=== PATIENT | female | born 1995 | race Caucasian/White ===

== ENCOUNTER → 2023-11-02 15:43 | Outpatient (REF) | payer OTHER, SELFPAY | LOC: RAD 15:43 | PROVIDERS: ATTENDING PHYSICIAN Obstetrics & Gynecology | DX: O26.851 Spotting complicating pregnancy, first trimester (principal) | CPT/HCPCS: 76801 ==

== ENCOUNTER 2024-06-22 21:26 | Inpatient (IN) | payer OTHER, SELFPAY ==
[2024-06-22 21:43] VITALS: BP 122/82; BMI 30.7
[2024-06-22] MEDS: LR 1000 IV (22:00)
[2024-06-22 22:14] LABS: % Basophils 0.4 % (0-2); % Eosinophils 0.8 % (0-6); % Immature Granulocytes 0.5 % (0-0.5); % Lymphocytes 12.8 % (20.5-51.1); % Monocytes 5.7 % (1.7-9.3); % Neutrophils 79.8 % (42.2-75.2); Absolute Basophils 0.1 10^3/uL (0-0.2); Absolute Eosinophils 0.1 10^3/uL (0-0.7); Absolute Immature Granulocytes 0.1 10^3/uL (0-0.05); Absolute Lymphocytes 2.1 10^3/uL (1.2-3.4); Absolute Monocytes 0.9 10^3/uL (0.1-0.6); Absolute Neutrophils 13.2 10^3/uL (1.4-6.5); Hematocrit 33.3 % (37.0-47.0); Mean Corpuscular Hgb 31.7 pg (27.0-31.0); Mean Corpuscular Volume 87.9 fL (81.0-99.0); Mean Platelet Volume 9.7 fL (7.4-10.4); Nucleated Red Blood Cells % 0 %; Platelet Count 311 10^3/uL (130-400); Red Blood Cell Count 3.79 10^6/uL (4.20-5.40); Red Cell Dist. Width 12.1 % (11.5-14.5); White Blood Cell Count 16.5 10^3/uL (4.8-10.8)
[2024-06-22] MEDS: FENTANYL/BUPIVACAINE 100 EPIDURAL (23:36)
[2024-06-22] MEDS: SUBLIMAZE 100 MCG EPIDURAL (23:36)
[2024-06-23] MEDS: LR 1000 IV ×2 (00:56→08:17)
[2024-06-23] MEDS: FENTANYL/BUPIVACAINE 100 EPIDURAL (08:17)
[2024-06-23] MEDS: PITOCIN 30 UNITS/NSS 500 ML IV (10:44)
[2024-06-23] MEDS: MOTRIN 600 MG PO ×2 (13:45→20:07)
[2024-06-24] MEDS: MOTRIN 600 MG PO ×3 (03:13→19:44)
[2024-06-24] MEDS: SENOKOT-S 1 TABLET PO (03:13)
[2024-06-24 06:44] LABS: Hematocrit 29.1 % (37.0-47.0); Hemoglobin 10.5 g/dL (12.0-16.0)
[2024-06-24] MEDS: HYDROCORTISONE 2.5% OINTMENT 1 APPLIC TOPICAL (10:28)
[2024-06-24 16:26] LABS: Syphilis/T. pallidum Ab Reflex Negative (Negative)
[2024-06-24] MEDS: PRENATAL PLUS 1 TABLET PO (17:53)
[2024-06-25] MEDS: SENOKOT-S 1 TABLET PO (05:09)
[2024-06-25] MEDS: MOTRIN 600 MG PO (05:09)
== END 2024-06-25 11:30 | disposition home or self-care (01) | DRG 807 ==
LOC: LDRP 21:26
PROVIDERS: Obstetrics & Gynecology; ADMITTING PHYSICIAN Obstetrics & Gynecology; FAMILY PHYSICIAN Internal Medicine
PROC: 10E0XZZ Delivery of Products of Conception, External Approach (ICD-10-PCS; 2024-06-23)
PROC: 0UQMXZZ Repair Vulva, External Approach (ICD-10-PCS; 2024-06-23)
PROC: 0KQM0ZZ Repair Perineum Muscle, Open Approach (ICD-10-PCS; 2024-06-23)
DX: O48.0 Post-term pregnancy (principal); Z37.0 Single live birth; Z3A.40 40 weeks gestation of pregnancy; O69.81X0 Labor and delivery complicated by cord around neck, without compression, not applicable or unspecified; O70.1 Second degree perineal laceration during delivery
CPT/HCPCS: 36415; 85014; 85018; 85025; 86780; 86850; 86900; 86901

== ENCOUNTER 2024-07-08 18:33 | Inpatient (IN) | payer OTHER, SELFPAY ==
[2024-07-08 14:12] VITALS: BP 121/74
[2024-07-08 15:09] LABS: Hematocrit 35.6 % (37.0-47.0); Hemoglobin 12.4 g/dL (12.0-16.0); Mean Corp Hgb Conc. 34.8 g/dL (33.0-37.0); Mean Corpuscular Hgb 31.1 pg (27.0-31.0); Mean Corpuscular Volume 89.2 fL (81.0-99.0); Mean Platelet Volume 8.8 fL (7.4-10.4); Platelet Count 423 10^3/uL (130-400); Red Blood Cell Count 3.99 10^6/uL (4.20-5.40); White Blood Cell Count 24.2 10^3/uL (4.8-10.8)
[2024-07-08 15:30] LABS: ALT (SGPT) 14 U/L (0-35); AST (SGOT) 16 U/L (14-36); Albumin 3.3 g/dl (3.5-5.0); Alkaline Phosphatase 162 U/L (38-126); Blood Urea Nitrogen 14 mg/dl (7-17); Calcium 9.4 mg/dl (8.4-10.2); Carbon Dioxide 22 mmol/L (22-30); Chloride 104 mmol/L (98-107); Glucose 85 mg/dl (70-99); Potassium 4.6 mmol/L (3.5-5.1); Sodium 139 mmol/L (135-145); Total Bilirubin 0.2 mg/dl (0.2-1.3); Total Protein 6.4 g/dl (6.3-8.2); eGFR > 60.00
[2024-07-08 15:45] LABS: % Basophils 0.7 % (0-2); % Eosinophils 1.4 % (0-6); % Monocytes 5.2 % (1.7-9.3); % Neutrophils 85.7 % (42.2-75.2); Absolute Basophils 0.2 10^3/uL (0-0.2); Absolute Eosinophils 0.3 10^3/uL (0-0.7); Absolute Immature Granulocytes 0.2 10^3/uL (0-0.05); Absolute Lymphocytes 1.5 10^3/uL (1.2-3.4); Absolute Monocytes 1.3 10^3/uL (0.1-0.6); Absolute Neutrophils 20.7 10^3/uL (1.4-6.5); Nucleated Red Blood Cells % 0 %
--- NOTE | 2024-07-08 16:09 | ED.GENMED ---
History of Present Illness
General
Chief Complaint: Breast Problem
Source: patient
Exam Limitations: none
Time Seen by Provider: 07/08/24 14:53
Nursing documentation reviewed up to this point in time: agreed with
History of Present Illness
History of Present Illness:
28-year-old female hx Factor V Leiden, 2 weeks has significant left breast pain and swelling. She is being treated for mastitis with dicloxacillin for the past 48 hours without any relief. She has had daily fevers maximum 101.62 days
ago. She is pumping her breasts. She states pain gets to 8/10, her last Motrin was at 11 AM 400 mg and states her pain is 4/10 at this time.
Past History
Past History
ED Past Medical History: Other (Factor V Leiden)
Social History
Tobacco: Non-smoker
Personal:
Living: with family
Review of Systems
Review of Systems
Allergies reviewed?: Yes
All Other Systems: ROS reviewed and negative except as documented in HPI and ROS
Constitutional: Reports fever
Respiratory: Denies trouble breathing
Cardiac: Denies chest pain
ABD/GI: Denies abdominal pain, nausea or vomiting
Skin: Reports other (Swelling, redness, pain left breast)
Neurological: Reports no symptoms
Phy Exam
Physical Exam
Physical Exam:
GENERAL: No acute distress. A&Ox3.
CONSTITUTIONAL: Afebrile.
EYES: clear, conjunctivae normal
ENMT: moist mucus membranes
RESPIRATORY: Regular respirations, nonlabored, lungs clear.
CARDIOVASCULAR: Regular rate and rhythm, no murmurs, no rubs.
GI: Soft, nontender, normal BS
MUSCULOSKELETAL: Moves with ease. Well perfused.
SKIN: Warm, dry, pink. Left breast slightly more swollen than right, erythema upper breast with significant tenderness
PSYCH: Normal mood and affect. Well kept, interactive and appropriate
NEUROLOGIC: Awake, alert and oriented. No focal neurological deficits
Course
Orders/Labs/Results
Orders:
Orders
07/08/24 14:54
CMP [Comprehensive Metabolic Panel] Urgent
Complete Blood Count/With Diff Urgent
07/08/24 Dinner
Regular
At Your Request: Full Participation
Does patient need a safe tray?: No
07/08/24 15:22
US Breast Left Ltd WDC Urgent
Reason for Exam: CONCERN FOR ABSCESS TREATING FOR MASTITIS
07/08/24 16:15
Piperacillin/Tazo 3.375 Gram [Zosyn] 3.375 gram in 50 ml IV NOW
07/08/24 16:20
Breast Surgery Consult Urgent
Consulting Provider: Jasmyn Jarvis
Was physician already notified: Yes
Reason for Consult: L breast abscess, 2 weeks post
07/08/24 16:23
Consult Interventional Radiology [IRAD CONSULT] Urgent
Consulting Provider: Gunnar Vergara
Was physician already notified: Yes
Reason for Consult/Procedure: L breast abscess
Acknowledgement that appropriate orders are entered: Yes
07/08/24 16:37
Fluid Culture with Gram Stain Routine
JHONATHAN Source: Fluid
Specimen Description:
Comment: left breast abscess
07/08/24 17:35
Lactate Level [Lactic Acid] Urgent
07/08/24 17:37
Acetaminophen [Tylenol] 650 mg .ROUTE .STK-MED ONE
07/08/24 17:39
Acetaminophen [Tylenol] 650 mg PO NOW STA
07/08/24 17:40
INFECTIOUS DISEASE CONSULT Routine
Consulting Provider: Marialuisa Mcdonald
Was physician already notified: Yes
Reason for consult: left breast abcess/mastitis
Vancomycin [Vancocin] 1,500 mg 0.9% Sodium Chloride 500 ml [Nss] 500 ml IV NOW
07/08/24 17:41
Admit/Transfer Patient As Directed
Co-Sign Provider:
Level of Care: Inpatient admission
Assign to:: LDRP
Physician / Group: rehan rangel
Diagnosis: sepsis left breast abcess /mastitis
Reason for Hospitalization: sepsis left breast abscess /mastitis
Expected length of stay greater than two midnights?: Yes
ELOS- Estimated Length of Stay in days: 3
I certify the patient meets the requirements for IP care: Yes
Code Status As Directed
Resuscitation Status: Full Code
07/08/24 17:46
PRN Pain Medication Management As Directed
May give lesser potent ordered pain med per pt: Yes
preference::
Protocol:: Medication orders for pain may be administered in a
manner that supports deferring to patient preference
when the pt is:
- Requesting an ordered lesser potent pain medication.
Least to most potent pain medications are defined
as: acetaminophen < NSAID < tramadol < opioids
(morphine, oxycodone, hydromorphone).
- Requesting a lesser dose of the same medication IF
ORDERED.
- Requesting a less intrusive route of administration
if both routes are prescribed by the provider (PO <
IV).
07/08/24 17:53
Breast Surgery Consult Routine
Consulting Provider: Jasmyn Jarvis
Was physician already notified: Yes
Reason for Consult: left breast abscess 2 weeks post
07/08/24 19:49
0.9% Sodium Chloride 1000 ml [Nss] 1,000 ml IV 100 mls/hr
Acetaminophen [Tylenol] 650 mg PO Q4HPRN PRN
Bisacodyl [Dulcolax] 10 mg RECTAL [id number] PRN
Docusate W/Senna [Senokot-S] 1 tablet PO BIDPRN PRN
Ibuprofen [Motrin] 400 mg PO Q6HPRN PRN
Polyethylene Glycol Powder [Miralax] 17 grams PO DAILYPRN PRN
07/08/24 19:49
CONSULT Routine
Activity As Directed
Activity Level: As Tolerated
Pneumatic Compression Sleeves As Directed
Type: Knee high
Vital Signs As Directed
Frequency: Per unit guidelines
DX Deep Vein Thrombosis Video Routine
07/08/24 21:30
Blood Culture Routine
JHONATHAN Source: Blood/Venous
Specimen Description:
07/08/24 22:00
Piperacillin/Tazo 3.375 Gram [Zosyn] 3.375 gram in 50 ml IV Q6H
07/09/24 06:00
Complete Blood Count/With Diff IN AM
Comprehensive Metabolic Panel IN AM
07/10/24 06:00
Complete Blood Count/With Diff IN AM
Comprehensive Metabolic Panel IN AM
07/11/24 06:00
Complete Blood Count/With Diff IN AM
Comprehensive Metabolic Panel IN AM
Abnormal Lab Results
07/08/24
14:54
WBC 24.2 H 10^3/uL
(4.8-10.8)
RBC 3.99 L 10^6/uL
(4.20-5.40)
Hct 35.6 L %
(37.0-47.0)
MCH 31.1 H pg
(27.0-31.0)
Plt Count 423 H 10^3/uL
(130-400)
Abs Immat Gran (auto) 0.2 H 10^3/uL
(0-0.05)
Absolute Neuts (auto) 20.7 H 10^3/uL
(1.4-6.5)
Absolute Monos (auto) 1.3 H 10^3/uL
(0.1-0.6)
Immature Gran % 1.0 H %
(0-0.5)
Neutrophils % 85.7 H %
(42.2-75.2)
Lymphocytes % 6.0 L %
(20.5-51.1)
Alkaline Phosphatase 162 H U/L
(38-126)
Albumin 3.3 L g/dl
(3.5-5.0)
07/08/24 14:54
07/08/24 14:54
Vital Signs
Initial and Last Documented VS:
Initial Vital Signs
Temp Pulse Resp BP Pulse Ox
98.7 F 97 16 121/74 96
07/08/24 14:12 07/08/24 14:12 07/08/24 14:12 07/08/24 14:12 07/08/24 14:12
Last Documented Vital Signs
Temp Pulse Resp BP Pulse Ox
99.3 F 97 16 121/74 96
07/08/24 17:19 07/08/24 14:12 07/08/24 14:12 07/08/24 14:12 07/08/24 14:12
MDM/Problems Addressed
MDM/Problems Addressed:
28-year-old female hx Factor V Leiden, 2 weeks has significant left breast pain and swelling. She is being treated for mastitis with dicloxacillin for the past 48 hours without any relief. She has had daily fevers maximum 101.62 days
ago. She is pumping her breasts. She states pain gets to 8/10, her last Motrin was at 11 AM 400 mg and states her pain is 4/10 at this time.
Afebrile, NAD
L breast with redness upper breast, swelling and very tender.
CBC: WBC 24.2
CMP normal
4:15 p.m.
Ultrasound left breast radiology report read: IMPRESSION: There is a large collection of fluid which given symptoms is likely abscess. There is abnormal adenopathy, likely reactive
Plan: Admit to Dr. Rangel
IV antibiotics
Consult in for Dr. Jarvis who requests IR drain abscess.
IR consult in.
*Critical Care Note
Total Time (30-74mins, 75-104mins- exclusive of procedures): Not Applicable
ED Attending Note
-
Portions of this chart may have been created with voice recognition software.� Occasional wrong word or��sound alike� substitutions may have occurred due to the inherent limitations of voice recognition software.
Discharge Plan
Departure
Patient Disposition: Admit
Date of Disposition: 07/08/24
Time of Disposition: 16:11
Admit to: Med/Surg
Presentation/result/management discussed w/ accepting MD/DO: Dr. Rangel
Condition: Fair
Discharge Problem:
Abscess of left breast
Interventions
Interventions:
*Risk Screen - Suicide Last Done: 07/08/24 14:12
*General Assessment Last Done: 07/08/24 14:12
*Neglect/Abuse Screening Last Done: 07/08/24 14:12
*ED COVID-19 Vaccine History Last Done: 07/08/24 14:56
*Nursing Disposition Last Done: 07/08/24 19:53
ED-Skin Assessment Last Done: 07/08/24 14:56
Discharge Date and Time
Discharge Date/Time: 07/08/24 19:53
[2024-07-08] MEDS: ZOSYN 50 IV ×2 (16:27→23:06)
--- NOTE | 2024-07-08 16:34 | HPS.HSE ---
Family Physician
<CASE Viveros - Last Filed: 07/08/24 17:54>
-
Family Physician: Pablito Ortega
Chief Complaint
<CASE Viveros - Last Filed: 07/08/24 17:54>
-
Left breast mastitis, swelling, recent fevers
History of Present Illness
28-year-old female 2 weeks with left breast pain and swelling due to mastitis. She reports having a small round marble red area to the top of her left breast 4 to 5 weeks ago before having her child. She reports 1 week ago the swelling
started expanding across the top of her breast to the left lateral side of it associated with 4 days of fevers 100.2F-101.6F through scheduled Tylenol and Motrin. She reports no fever today. She reports speaking with a application consultant who
advised her to use cold compresses to the area and continue to pump as normal. On Sunday 2 days ago she spoke with the on-call SURFACE SUPERVISOR doctor who placed her on Dicloxacillin which she took over the past 48 hours without any relief She reports she has
been pumping her breasts with this current infection. She has been taking Motrin for pain with last dose at 11 AM. She spoke today with on-call SURFACE SUPERVISOR who advised her to come to the hospital with possible admission to their service. In the ER her
left breast ultrasound showed a large collection of fluid which is likely an abscess. The case was discussed with Dr. Aranda who recommended IR to drain abscess patient to bring pump and and a consult.
She has history of factor V Leiden heterozygous type inherited only 1 genetic mutation type, 2 para 1 AB 1(miscarriage)
<Alivia Rangel DO - Last Filed: 07/08/24 19:42>
History of Present Illness
28-year-old female 2 weeks with left breast pain and swelling due to mastitis. She reports having a small round marble red area to the top of her left breast 4 to 5 weeks ago before having her child. She reports 1 week ago the swelling
started expanding across the top of her breast to the left lateral side of it associated with 4 days of fevers 100.2F-101.6F through scheduled Tylenol and Motrin. She reports no fever today. She reports speaking with a application consultant who
advised her to use cold compresses to the area and continue to pump as normal. On Sunday 2 days ago she spoke with the on-call SURFACE SUPERVISOR doctor who placed her on Dicloxacillin which she took over the past 48 hours without any relief She reports she has
been pumping her breasts with this current infection. She has been taking Motrin for pain with last dose at 11 AM. She spoke today with on-call SURFACE SUPERVISOR who advised her to come to the hospital with possible admission to their service. In the ER her
left breast ultrasound showed a large collection of fluid which is likely an abscess. The case was discussed with Dr. Jarvis who recommended IR to drain abscess patient to bring pump and and a consult.
She has history of factor V Leiden heterozygous type inherited only 1 genetic mutation type, 2 para 1 AB 1(miscarriage)
Medical History
<CASE Viveros - Last Filed: 07/08/24 17:54>
Past Medical History
Past Medical History: Reports Other
Additional Past Medical History:
factor V Leiden heterozygous type inherited only 1 genetic mutation type.
Past Surgical History: Reports None
Social History
Tobacco: Non-smoker
Alcohol: None
Drug: None
Personal:
Living: With Family ()
Employment: Employed
Family History
Family History: Other (Mother heterozygous type factor V Leiden, maternal aunt homozygous type factor V with history of multiple DVTs, maternal grandmother lung CA)
Allergies / Home Medications
Allergies reflects when Allergies were last updated in [facility].
Home Medications with original date entered in [facility]
Allergy/Medication List:
Allergies
Allergy/AdvReac Type Severity Reaction Status Date / Time
No Known Allergies Allergy Verified 07/08/24 14:12
Home Medications
acetaminophen 500 mg tablet 500 mg PO Q6HPRN PRN mild pain 07/08/24
dicloxacillin 500 mg capsule 500 mg PO Q6H 07/08/24
ferrous sulfate 325 mg (65 mg iron) tablet (FeroSul) 325 mg PO HS 07/08/24
ibuprofen 200 mg tablet 400 - 600 mg PO Q6HPRN PRN moderate pain/cramps 07/08/24
vit no.133-ferrous fumarate 28 mg-folic acid 800 mcg tablet () 1 tab PO HS 07/08/24
sennosides 8.6 mg-docusate sodium 50 mg tablet 1 tab PO HS 07/08/24
Review of Systems
<CASE Viveros - Last Filed: 07/08/24 17:54>
-
History Source: Patient and Family ( at bedside)
A 12 point ROS was completed and negative except as noted: Yes
Constitutional: Denies Fever, Fatigue or Chills
EENT: Denies Tearing or Runny Nose
Respiratory: Denies Cough or Trouble Breathing
Cardiac: Denies Chest Pain, Diaphoresis, Palpitations or Syncope
Abdomen/GI: Denies Abdominal Pain, Nausea, Vomiting, Diarrhea, Constipated, Bloody Stools or Black Stools
: Denies Dysuria, Frequency, Flank Pain, Incontinence, Difficulty Voiding, Urgency or Bleeding
Musculoskeletal: Denies Joint Pain or Edema
Skin: Reports Other (Left breast swollen, tender, erythema to entire top of breast and lateral left side left breast engorged with breastmilk)
Neurological: Denies Dizzy or Headache
Endocrine: Reports No Symptoms
Hematologic/Lymphatic: Reports No Symptoms
Psych: Reports Calm
Physical Exam
<CASE Viveros - Last Filed: 07/08/24 17:54>
Vital Signs
Vital Signs
Temp Pulse Resp BP Pulse Ox
98.7 F 97 16 121/74 96
07/08/24 14:12 07/08/24 14:12 07/08/24 14:12 07/08/24 14:12 07/08/24 14:12
Physical Exam
General: Comfortable, Conversant and Pain; No Fever or Chills
HEENT: NormoCephalic, Anicteric, Moist mucous membranes, PERRLA, [place] Conjunctivae and No Ptosis
Respiratory: Clear; No Wheezes, Rales or Rhonchi
Cardiac: S1/S2 and Regular Rhythm; No Murmur, Rub, Gallop or Peripheral Edema
Breast: Deferred by me and Other (Left breast swollen, tender, erythema to entire top of breast and lateral left side left breast engorged with breastmilk)
GI: Soft, Non Tender, Non Distended, Normal Bowel Sounds and No Hepatosplenomegaly
Rectal: Deferred by Provider
Genito-urinary: Deferred by me
Musculoskeletal: No Clubbing, No Cyanosis and No Edema
Skin: Warm, Dry and Other (Left breast swollen, tender, erythema to entire top of breast and lateral left side left breast engorged with breastmilk); No Rash
Neuro: AO x 3 and No Motor Deficits; No Cranial Nerves Intact, No Sensory Deficits, Slurred Speech, Facial Droop, Tremors or Sedated
Psych: Calm
Laboratory Results
<CASE Viveros - Last Filed: 07/08/24 17:54>
-
07/08/24 14:54
07/08/24 14:54
Laboratory Results
Total Bilirubin 0.2 mg/dl (0.2-1.3) 07/08/24 14:54
AST 16 U/L (14-36) 07/08/24 14:54
ALT 14 U/L (0-35) 07/08/24 14:54
Alkaline Phosphatase 162 U/L (38-126) H 07/08/24 14:54
Impression/Plan
<CASE Viveros - Last Filed: 07/08/24 17:54>
-
Impression/plan:
Admit to �Dr. Iaprachi service
#Sepsis secondary to LEFT BREAST ABSCESS / MASTITIS 2 weeks
4 days fever 100.2F- 101.6F sunday to sunday T max 101.6F
left breast swelling 2 days of Dicloxacillin from SURFACE SUPERVISOR
-WBC 24.2 with left shift, afebrile 98.7, HR 97, BP 121/74
- possible Consult Dr. Isidro
-Consult IR for breast abscess drainage
-Consult Infectious disease recommends IV vancomycin IV Zosyn
-IV NSS 100 cc/h
-Have patient continue to use Breast pump
- consult
-Tylenol, Motrin as needed pain/fever
-Check blood culture x 1
-Follow CBC, CMP
#Hx factor V Leiden(heterozygous type)
-Only carries 1 gene mutation
DVT prophylaxis
SCDs
Full code
<Alivia Rangel DO - Last Filed: 07/08/24 19:42>
-
Impression/plan:
Admit to �DrGuillermo Rangel service
#Sepsis secondary to LEFT BREAST ABSCESS / MASTITIS 2 weeks
4 days fever 100.2F- 101.6F sunday to sunday T max 101.6F
left breast swelling 2 days of Dicloxacillin from SURFACE SUPERVISOR
-WBC 24.2 with left shift, afebrile 98.7, HR 97, BP 121/74
- possible Consult Dr. Jarvis
-Consult IR for breast abscess drainage
-Consult Infectious disease recommends IV vancomycin IV Zosyn
-IV NSS 100 cc/h
-Have patient continue to use Breast pump
- consult
-Tylenol, Motrin as needed pain/fever
-Check blood culture x 1
-Follow CBC, CMP
#Hx factor V Leiden(heterozygous type)
-Only carries 1 gene mutation
2 wks s/p - did not require PP anticoagulation after delivery since no csec
DVT prophylaxis
SCDs
Full code
[2024-07-08] MEDS: TYLENOL 650 MG PO ×2 (17:39→23:18)
[2024-07-08 17:58] LABS: Lactic Acid 0.9 mmol/L (0.7-2.0)
--- NOTE | 2024-07-08 18:52 | EDRN ---
Report tubed by previous shift; room assigned but staff not ready per flow coordinating RN.
--- NOTE | 2024-07-08 19:16 | W.PN.UPDATE ---
Update Note
Progress Note Update
28 yo female presented to ED at direction of Dr. Garcia after pt called reporting left breast mastitis symptoms worsening despite abx.
I saw pt in ER earlier tonight. This is late entry due to being involved in direct pt care.
Pt reported onset of some lumpiness in left breast prior to delivery which was felt to be related to expected breast glands changes towards end of . Approx 1 wk ago started feeling some soreness in left breast. Within a few days started
with fever and chills. Was started on abx over this past weekend Dicloxacillin with no improvement in last 2 days. Symptoms worse with continued fever despite motrin/tylenol and increased pain , redness and tenderness. Temp to 101-102 at home. Went
to ER today. Imaging demonstrated large fluid collection felt to likely be an abscess given symptoms and course of sx.
ROS: fever, chills, left breast pain, redness, tenderness, swelling. Diminished milk flow from left breast. Body aches and general malaise. No N/V/D/C, no abd pain. Bleeding slightly picked up today. Not heavy. No dizziness.
Brief Exam:
Pleasant female, appears with some malaise. Nontoxic appearance but can tell not feeling well.
Left breast is erythematous diffusely and tender, firm with fluctuation superiorly. Breast is engorged. Mass difficult to palpate due to swelling and induration. Findings more notable superior half and left side of left breast.
Right breast normal in appearance slightly engorged with milk. No erythema or mass
abdomen: soft NT ND
Fundus firm NT
Ext: no significant edema
A/P :1. Left breast mastitis with probable abscess-> plan zosyn and vancomycin (for mrsa coverage). Ok to continue to breastfeed. Will obtain consult tomorrow. ID consult for input on abx. PT to speak to her manager culture regarding
possible probiotic drops for baby if indicated.
Admit for IV abx, plan is for drainage tomorrow by IRad. Reviewed plan with pt and . Aware will have drain placed at time of d/c home. Aware to expect 2-3 days hospitalization until culture results return and showing clinical improvement.
Spoke with Dr. Jarvis who is also consulted since pt will need to follow up with her postdischarge.
Factor V Leiden heterozygous carrier- DVT proph
2 wks s/p - otherwise expected recovery outside of mastitis and abscess.
Reviewed MOTOR VEHICLES INSPECTOR H&P and Assessment and plan and agree.
Time spent face to face consult, reviewing records, reports, discussion with Dr. Jarvis as well as MOTOR VEHICLES INSPECTOR and documentation on day of visit was over 45 min
[2024-07-08] MEDS: VANCOCIN 530 MG IV (19:35)
--- NOTE | 2024-07-08 20:08 | PHA.VAN.IN ---
Assessment
- Assessment
Renal Function: Appears similar to baseline
Concomitant Antimicrobials: ZOSYN
- Previous Dosing Experience
Previous Regimen: NONE
AUC Dosing Plan
- Dosing Variables
Dosing Weight (kg): 69.2
Dosing CrCl (ml/min): 125
Vd coefficient (L/kg): 0.7
- Empiric Dosing
Initial / Loading Dose: 1500MG
Maintenance Regimen: 750MG IV Q8H
Estimated AUC (mcg*h/mL): 453
Estimated Peak (mcg*h/mL): 26.7
Estimated Trough (mcg/ml): 12.5
Estimated Half Life (H): 6.4
Pharmacokinetics Vancomycin I
- -
Patient Age: 28
Patient Sex: Female
Vancomycin Day #: 1
Indication: Skin And Soft Tissue (BREAST MASTITIS)
Requesting Provider: BREANNA
Height / Weight:
Height 5 ft 3 in
Actual Weight 69.2 kg
Pertinent Past Medical History: FAILED OUTPT [place]
- Vital Signs / Lab Results
Temp Pulse Resp BP Pulse Ox
99.3 F 97 16 121/74 96
07/08/24 17:19 07/08/24 14:12 07/08/24 14:12 07/08/24 14:12 07/08/24 14:12
Lab Results - Hematology
07/08/24
14:54
WBC 24.2 H
Lab Results - Chemistry
07/08/24
14:54
BUN 14
Creatinine 0.6
Albumin 3.3 L
07/08/24
17:35
Lactic Acid 0.9
[2024-07-08] MEDS: MOTRIN 400 MG PO (20:35)
[2024-07-08] MEDS: NSS 1000 IV (20:50)
[2024-07-08 20:51] LABS: Urine Albumin Negative (Neg - Trace); Urine Bilirubin Negative (Negative); Urine Character Clear (Clear); Urine Color Yellow; Urine Glucose Negative (Negative); Urine Ketone 1+ (Negative); Urine Leukocyte 1+ (Negative); Urine Nitrite Negative (Negative); Urine Occult Blood 4+ (Negative); Urine Urobilinogen Negative (Neg - 1+); Urine pH 6.5 (5.0-9.0)
[2024-07-08 21:00] LABS: Urine Bacteria Few (Negative); Urine White Cell 16-20 /HPF (0-5)
--- NOTE | 2024-07-08 21:31 | CON.GS ---
Consultation
-
Date/Time Consultation Requested: 07/08/24 1620H
Date/Time Consultation Performed: 07/08/24 1750H
Requesting Provider: Claire
Performing Provider: Simona
Reason for Consultation: Breast abscess
Medical History
-
Chief Complaint: Painful red swollen left breast
History of Present Illness:
28 Y/O female who delivered a term baby boy 2 weeks ago and who has been exclusively pumping breast milk presents with 7 day history of left breast lumps, pain and worsening fever. US today shows complex collection in the left breast consistent
with an abscess. The patient was febrile to 101.6 F while taking Tylenol and Advil around the clock.
Past Medical History
Past Medical History: Reviewed & Noncontributory
Past Surgical History: None
Social History
Tobacco: Non-Smoker
Alcohol: None
Personal:
Living: With Family
Family History
Family History: Reviewed & Not Pertinent
Allergies / Home Medications
Allergy/AdvReac Type Severity Reaction Status Date / Time
No Known Allergies Allergy Verified 07/08/24 14:12
�Medication �Instructions �Recorded �Confirmed �Type
acetaminophen 500 mg tablet 500 mg PO Q6HPRN PRN mild pain 07/08/24 07/08/24 History
dicloxacillin 500 mg capsule 500 mg PO Q6H 07/08/24 07/08/24 History
ferrous sulfate 325 mg (65 mg 325 mg PO HS 07/08/24 07/08/24 History
iron) tablet (FeroSul)
ibuprofen 200 mg tablet 400 - 600 mg PO Q6HPRN PRN 07/08/24 07/08/24 History
moderate pain/cramps
vit no.133-ferrous 1 tab PO HS 07/08/24 07/08/24 History
fumarate 28 mg-folic acid 800 mcg
tablet ()
sennosides 8.6 mg-docusate sodium 1 tab PO HS 07/08/24 07/08/24 History
50 mg tablet
Review of Systems
-
History Source: Patient
All other systems: Negative unless noted
A 10 point review of systems was completed, and was negative except as per HPI.
Physical Exam
Vital Signs
Temp Pulse Resp BP Pulse Ox
99.3 F 97 16 121/74 96
07/08/24 17:19 07/08/24 14:12 07/08/24 14:12 07/08/24 14:12 07/08/24 14:12
07/07/24 07/08/24 07/09/24
06:59 06:59 06:59
Actual Weight 69.2 kg
Lab Results
07/08/24 14:54
07/08/24 14:54
WBC 24.2 10^3/uL (4.8-10.8) H 07/08/24 14:54
Hgb 12.4 g/dL (12.0-16.0) 07/08/24 14:54
Hct 35.6 % (37.0-47.0) L 07/08/24 14:54
Plt Count 423 10^3/uL (130-400) H 07/08/24 14:54
Abs Immat Gran (auto) 0.2 10^3/uL (0-0.05) H 07/08/24 14:54
Neutrophils % 85.7 % (42.2-75.2) H 07/08/24 14:54
Physical Exam
General: Well Developed, Well Nourished and No Apparent Distress
HEENT: Normocephalic and Anicteric
Respiratory: Clear
Breast: Other (significant swelling and erythema left breast consistent with abscess)
Musculoskeletal: No Clubbing and No Edema
Skin: Warm and Dry
Neuro: Awake and Alert
Hematologic/Lymphatic: No Lymphadenopathy
Psych: Calm
Data Reviewed
-
Radiology: Image Personally Visualized and interpreted, Report Reviewed by me and Discussed with Physician
Ultrasound: Image Personally Visualized and interpreted, Report Reviewed by me, Discussed with Physician, Discussed with Patient and Discussed with Family
Labs: Labs Reviewed by me
Critical Care Time (in minutes): 30
Total Time Spent with Patient (in minutes): 20
Assessment / Plan
-
Left breast abscess in nursing mother. Broaden antibiotics, for IR drainage under sedation. Pt can continue to nurse, will room in with baby. Antibiotics per ID. I will follow.
[2024-07-09] MEDS: TYLENOL 650 MG PO ×3 (03:42→23:42)
[2024-07-09] MEDS: ZOSYN 50 IV ×3 (03:43→17:30)
[2024-07-09] MEDS: MOTRIN 400 MG PO ×3 (03:43→19:55)
[2024-07-09 05:41] LABS: % Basophils 0.7 % (0-2); % Immature Granulocytes 0.9 % (0-0.5); % Lymphocytes 5.9 % (20.5-51.1); % Monocytes 5.1 % (1.7-9.3); % Neutrophils 86.4 % (42.2-75.2); Absolute Basophils 0.2 10^3/uL (0-0.2); Absolute Eosinophils 0.3 10^3/uL (0-0.7); Absolute Immature Granulocytes 0.2 10^3/uL (0-0.05); Absolute Lymphocytes 1.5 10^3/uL (1.2-3.4); Absolute Monocytes 1.3 10^3/uL (0.1-0.6); Absolute Neutrophils 21.4 10^3/uL (1.4-6.5); Hematocrit 33.2 % (37.0-47.0); Hemoglobin 11.6 g/dL (12.0-16.0); Mean Corp Hgb Conc. 34.9 g/dL (33.0-37.0); Mean Corpuscular Hgb 30.9 pg (27.0-31.0); Mean Corpuscular Volume 88.3 fL (81.0-99.0); Mean Platelet Volume 8.7 fL (7.4-10.4); Nucleated Red Blood Cells % 0 %; Platelet Count 407 10^3/uL (130-400); Red Blood Cell Count 3.76 10^6/uL (4.20-5.40); Red Cell Dist. Width 12.1 % (11.5-14.5); White Blood Cell Count 24.7 10^3/uL (4.8-10.8)
[2024-07-09 05:55] LABS: ALT (SGPT) 14 U/L (0-35); AST (SGOT) 12 U/L (14-36); Albumin 2.8 g/dl (3.5-5.0); Alkaline Phosphatase 133 U/L (38-126); Blood Urea Nitrogen 10 mg/dl (7-17); Calcium 8.6 mg/dl (8.4-10.2); Carbon Dioxide 19 mmol/L (22-30); Chloride 106 mmol/L (98-107); Estimated Creatinine Clearance > 125 ml/min; Glucose 129 mg/dl (70-99); Potassium 4.2 mmol/L (3.5-5.1); Sodium 140 mmol/L (135-145); Total Bilirubin 0.2 mg/dl (0.2-1.3); Total Protein 5.6 g/dl (6.3-8.2); eGFR > 60.00
[2024-07-09] MEDS: VANCOCIN 150 IV ×2 (06:02→16:22)
[2024-07-09] MEDS: NSS 1000 IV ×2 (06:03→16:05)
--- NOTE | 2024-07-09 07:08 | PTCARENOTE ---
Received report from Letitia Rodriguez RN
--- NOTE | 2024-07-09 08:17 | PHA.VAN.FU ---
Vancomycin Assessment / Plan
- Assessment
Renal Function: Stable
WBC's are: Stable
In the past 24 hrs, patient has been: Afebrile
Concomitant Antimicrobials: piperacillin/tazobactam
- Dosing Plan
Continue: Vanc 750mg Q8H
- Monitoring Plan
No level(s) ordered at this time: consider levels in next few days
- Follow Up
Pharmacy will continue to follow.
Vancomycin Follow UP
- -
Patient Age: 28
Patient Sex: Female
Vancomycin Day #: 2
Indication: Skin And Soft Tissue
Requesting Provider: Erica Graff
Pertinent Antimicrobial Allergies:
NKDA
Height / Weight:
Height 5 ft 3 in
Actual Weight 69.2 kg
Pertinent Past Medical History: 2 weeks
- Vital Signs / Lab Results
Temp Pulse Resp BP Pulse Ox
99.3 F 97 16 121/74 96
07/08/24 17:19 07/08/24 14:12 07/08/24 14:12 07/08/24 14:12 07/08/24 14:12
Lab Results - Hematology
07/08/24 07/09/24
14:54 05:27
WBC 24.2 H 24.7 H
Lab Results - Chemistry
07/08/24 07/09/24
14:54 05:27
BUN 14 10
Creatinine 0.6 0.6
Estimated Creat Clear > 125
Albumin 3.3 L 2.8 L
07/08/24
17:35
Lactic Acid 0.9
Lab Results - Urine
07/08/24
20:44
Urine Nitrite (Reflex) Negative
Leukocyte Esterase Rfl 1+ A
Ur Squamous Epith Cells 3-5
--- NOTE | 2024-07-09 09:58 | CON.ID ---
Consultation
-
Date/Time Consultation Requested: 07/08/2024 1740
Date/Time Consultation Performed: 07/09/2024 0909
Requesting Provider: Marysol Graff
Performing Provider: Dr. Dsouza
Reason for Consultation: Left breast mastitis
Chief Complaint / Past History
History of Present Illness
Mary Zimmer is a 28-year-old female without a significant past medical history being evaluated for left breast mastitis. History is obtained from chart review, along with patient interview.
The patient reports that approximately 38 weeks of her she began to feel 2 small lumps in the left superior breast area. At this point in time they were not tender, and they were believed to be secondary to her milk coming in. She
delivered a healthy baby boy on 06/22/2024. Following the , she noted an increase in size of the lumps in the left breast, and following discharge to home the lumps increased in size and became more painful. She saw her social economist
approximately 1 week ago, but the lumps were felt to be secondary to her milk and she was advised to remain on Motrin and Tylenol. 4 days ago she developed a fever to 101.6. The following day she called her social economist and was prescribed
dicloxacillin. Despite 48 hours of antibiotics she continued to feel worse, with increasing tenderness and painful areas of the breast and she came to the emergency room for further evaluation. Here, an ultrasound was performed which revealed a
rather large collection, with possible other collections in the left breast. She is tentatively to undergo IR aspiration of the areas later today.
She has no prior history of similar episodes. She is currently breast-feeding. She denies any change in appearance of the milk, although notes decreased production of milk from the left breast. No noted expressed blood.
Past History
Past Medical History: Other (Factor V Leiden deficiency)
Past Surgical History: None
Allergy History:
No Known Allergies Allergy (Verified 07/08/24 14:12)
Medications Reviewed: Yes
Current Antibiotics:
Vancomycin (dosed per pharmacy)
Zosyn 3.375 g IV every 6 hours
Social History
Tobacco: Non-Smoker
Alcohol: None
Drug: None
Personal:
Living: With Family
Employment: Employed
Family History
Family History: Not Pertinent
Review of Systems
Vital Signs
Temp Pulse Resp BP Pulse Ox
99.3 F 97 16 121/74 96
07/08/24 17:19 07/08/24 14:12 07/08/24 14:12 07/08/24 14:12 07/08/24 14:12
Physical Exam
Physical Exam
Constitutional: No Acute Distress, Comfortable and Non-toxic
Eyes: No Conjunctival Hemorrhage and Sclera Anicteric
Oral: No Thrush and No Ulcers
Cardiovascular: Regular Rate and S1/S2; Negative S3/S4
Pulmonary: Clear; Negative Wheezes, Rales or Rhonchi
Gastrointestinal: Soft, Non Tender, Distended, No Rebound and No Guarding
Genito-Urinary: Negative Herman
Extremities: Negative Edema, Cyanosis or Erythema
Skin: Warm and Dry
Neurological: Awake and Alert
Psychological: Calm
Left breast noted to have areas of erythema in the superior quadrants. Marked tenderness is noted. No fluctuant areas appreciated, but breast feels indurated.
Lab / Diagnostic Study Results
07/09/24 05:27
07/09/24 05:27
Abs Immat Gran (auto) 0.2 10^3/uL (0-0.05) H 07/09/24 05:27
Absolute Neuts (auto) 21.4 10^3/uL (1.4-6.5) H 07/09/24 05:27
Absolute Lymphs (auto) 1.5 10^3/uL (1.2-3.4) 07/09/24 05:27
Absolute Monos (auto) 1.3 10^3/uL (0.1-0.6) H 07/09/24 05:27
Absolute Basos (auto) 0.2 10^3/uL (0-0.2) 07/09/24 05:27
Immature Gran % 0.9 % (0-0.5) H 07/09/24 05:27
Neutrophils % 86.4 % (42.2-75.2) H 07/09/24 05:27
Lymphocytes % 5.9 % (20.5-51.1) L 07/09/24 05:27
Monocytes % 5.1 % (1.7-9.3) 07/09/24 05:27
Eosinophils % 1.0 % (0-6) 07/09/24 05:27
Basophils % 0.7 % (0-2) 07/09/24 05:27
Lactic Acid 0.9 mmol/L (0.7-2.0) 07/08/24 17:35
Ur Squamous Epith Cells 3-5 /LPF (Few) 07/08/24 20:44
Microbiology Results
Micro:
07/08/24 22:19 Blood Culture - Pending
Blood/Venous
07/08/24 21:30 Blood Culture - Pending
Blood/Venous
07/08/24 20:44 Urine Culture - Pending
Urine
Imaging:
07/08/2024 Ultrasound left breast: The left breast demonstrates a large collection of complex fluid between the 11 and 1:00 positions with additional smaller pockets throughout the breast. Fluid collections appear to interconnect. Lymph nodes are
enlarged, with the largest cortex measuring 7.9 mm. Please see full dictation for additional detail.
Assessment / Plan
Left breast mastitis with abscess
Leukocytosis
Fever
day #17
Recommendations:
Continue with empiric vancomycin and Zosyn. Follow vancomycin levels closely.
Await IR aspiration of the fluid collection. Please send for culture.
Monitor white count and temperature curve following source control.
Will await cultures to guide further antimicrobial selection and potential de-escalation.
Patient advised that she may need a course of IV antibiotics following discharge.
Further recommendations as additional data is returned.
[2024-07-09 13:43] VITALS: BP 117/77; BP_SYST 93
--- NOTE | 2024-07-09 14:52 | W.PN.GYN ---
Addendum entered and electronically signed by Leslie Lockhart, 07/09/24 14:56:
Appreciate ID, IR and breast surgery participating in this patient's care.
Original Note:
Today's Communication / Plan
-
-IR drainage today. NPO until after procedure.
-Continue Zosyn/Vanc
-Cultures pending; tailor abx when results available
Physician Note
-
Post readmit, PP Day #16:
28yo . Admitted for sepsis 2/2 masttitis with left breast abscess by US. [facility]
L breast pain well-controlled. Decreased milk production on L breast compared to R. continues to pump.
VSS- 112/73, 90, 18, 98.2 (Tmax 101.2F @0330)
Gen: NAD
Breast: Left breast engorged, fluctuant mass, erythema and edema affecting upper quadrants of L breast. Right breast unremarkable
Abd: soft, NTTP, fundus nonpalpable
Extr: no calf TTP
Hematology: WBC 24.7, Hgb 11.6, Hct 33.2, plt 407
Micro: Blood cx x2 pending, urine cx pending
A/P 28yo sepsis 2/2 L breast abscess.
- Continue Zosyn and Vanc pending cx/sens results.
- Plan for abscess drainage by IR today (afternoon). in-dwelling drain will likely be placed. NPO after breakfast.
- Fever/pain control with tylenol.
-Appreciate breast surgery and IR participating in this patient's care
MD Glendy. (resident)
STUDENT SUCCESS ADVISOR ADDENDUM:
Agree with above resident note, with minor modifications/additions made for clarity.
Alicia Lockhart
Vital Signs / Labs
-
Vital Signs and Labs:
Temp Pulse Resp BP Pulse Ox
99 F 93 14 117/77 97
07/09/24 13:43 07/09/24 13:43 07/09/24 13:43 07/09/24 13:43 07/09/24 13:43
07/09/24 05:27
07/09/24 05:27
07/08/24 07/08/24 07/09/24
14:54 20:44 05:27
WBC 24.2 H 24.7 H
RBC 3.99 L 3.76 L
Hgb 11.6 L
Hct 35.6 L 33.2 L
MCH 31.1 H
Plt Count 423 H 407 H
Abs Immat Gran (auto) 0.2 H 0.2 H
Absolute Neuts (auto) 20.7 H 21.4 H
Absolute Monos (auto) 1.3 H 1.3 H
Immature Gran % 1.0 H 0.9 H
Neutrophils % 85.7 H 86.4 H
Lymphocytes % 6.0 L 5.9 L
Carbon Dioxide 19 L
Glucose 129 H
AST 12 L
Alkaline Phosphatase 162 H 133 H
Total Protein 5.6 L
Albumin 3.3 L 2.8 L
Urine Ketones 1+ A
Ur Occult Blood Reflex 4+ A
Leukocyte Esterase Rfl 1+ A
Urine RBC 3-6 A
Urine WBC (Reflex) 16-20 A
Urine Bacteria (Reflex) Few A
[2024-07-09 15:05] VITALS: BP 117/75; BP_SYST 83
[2024-07-09 15:10] VITALS: BP 112/79; BP_SYST 83
[2024-07-09 15:15] VITALS: BP 112/78; BP_SYST 81
[2024-07-09 15:20] VITALS: BP 120/71; BP_SYST 85
--- NOTE | 2024-07-09 17:03 | W.PN.GYN ---
Today's Communication / Plan
-
A/P 2.5wks with left breast abscess, Postprocedure day #0 s/p IR drainage. Stable.
-abscess fluid sent for culture. Will await results and tailor abx as needed.
Continue current IV abx until then. Appreciate ID, IR and breast surgery collaborating in this patient's care.
Physician Note
-
Update note:
Patient seen at bedside s/p IR drainage of large left breast abscess. 50ml of purulent material was aspirated and a drain was left in place.
Patient feels overall fine after procedure. Pain well-controlled. Pumping for baby now, but has not yet pumped on the left side.
VSS- 124/79, HR 98, RR 18, T 99.1F
Gen: NAD
left breast with moderate engorgement, erythematous, fluctuant mass in upper quadrants slightly decreased in size from previous, dressing c/d/i, drain with ~25ml pink, purulent fluid in bulb
extr: no calf ttp
A/P 2.5wks with left breast abscess, Postprocedure day #0 s/p IR drainage. Stable.
-abscess fluid sent for culture. Will await results and tailor abx as needed.
Continue current IV abx until then. Appreciate ID, IR and breast surgery collaborating in this patient's care.
Alicia Lockhart, DO
[2024-07-10] MEDS: ZOSYN 50 IV ×3 (00:08→12:03)
[2024-07-10] MEDS: VANCOCIN 150 IV ×4 (00:37→23:58)
[2024-07-10] MEDS: TYLENOL 650 MG PO ×4 (03:48→22:15)
[2024-07-10] MEDS: NSS 1000 IV (03:48)
[2024-07-10] MEDS: MOTRIN 400 MG PO ×3 (03:49→19:50)
[2024-07-10 04:59] LABS: % Basophils 0.5 % (0-2); % Eosinophils 1.5 % (0-6); % Immature Granulocytes 0.8 % (0-0.5); % Lymphocytes 8.3 % (20.5-51.1); % Monocytes 4.7 % (1.7-9.3); % Neutrophils 84.2 % (42.2-75.2); Absolute Basophils 0.1 10^3/uL (0-0.2); Absolute Eosinophils 0.3 10^3/uL (0-0.7); Absolute Immature Granulocytes 0.2 10^3/uL (0-0.05); Absolute Lymphocytes 1.8 10^3/uL (1.2-3.4); Absolute Neutrophils 18.5 10^3/uL (1.4-6.5); Hematocrit 37.1 % (37.0-47.0); Hemoglobin 12.6 g/dL (12.0-16.0); Mean Corpuscular Hgb 31.7 pg (27.0-31.0); Mean Corpuscular Volume 93.5 fL (81.0-99.0); Mean Platelet Volume 8.9 fL (7.4-10.4); Nucleated Red Blood Cells % 0 %; Platelet Count 448 10^3/uL (130-400); Red Blood Cell Count 3.97 10^6/uL (4.20-5.40); White Blood Cell Count 21.9 10^3/uL (4.8-10.8)
[2024-07-10 05:26] LABS: ALT (SGPT) 12 U/L (0-35); AST (SGOT) 14 U/L (14-36); Alkaline Phosphatase 157 U/L (38-126); Blood Urea Nitrogen 7 mg/dl (7-17); Calcium 8.9 mg/dl (8.4-10.2); Carbon Dioxide 24 mmol/L (22-30); Chloride 106 mmol/L (98-107); Estimated Creatinine Clearance 112 ml/min; Glucose 82 mg/dl (70-99); Potassium 4.5 mmol/L (3.5-5.1); Sodium 140 mmol/L (135-145); Total Bilirubin 0.1 mg/dl (0.2-1.3); Total Protein 5.9 g/dl (6.3-8.2); eGFR > 60.00
--- NOTE | 2024-07-10 08:03 | W.PN.ID1 ---
Addendum entered and electronically signed by Heriberto Dsouza DO 07/10/24 12:42:
I saw and evaluated the patient. I reviewed the resident�s note and agree with findings and plan as documented in the resident�s note, with the addition of the following:
Patient overall feeling improved today. She is status post drainage of left breast collections yesterday. Cultures reveal the presence of a staph species, with full identification and susceptibility pending.
At present, discontinue further Zosyn; will transition to cefazolin 2 g IV every 8 hours.
Continue with vancomycin while final cultures are pending.
Continue to monitor white count and temperature curve. Follow drain output.
Case discussed with SEO EXPERT. Patient's also updated on current clinical status via patient's telephone.
Original Note:
Date of Service
Date of Service: July 10, 2024
Today's Communication
Continue Vancomycin, zosyn
Assessment / Plan
Left breast mastitis with abscess
Leukocytosis
Fever
day #18
Recommendations:
Continue Vancomycin and Zosyn
Pt tolerated I&D well yesterday.
Abscess gram stain with gram positive cocci
Will await cultures to guide further antimicrobial selection and potential de-escalation.
Monitor white count and temperature curve following source control.
Patient advised that she may need a course of IV antibiotics following discharge.
Subjective / Review of Systems
Patient tolerated well I&D by IR yesterday. She is afebrile.
Review of Systems: No Fever, No Chills, No Abdominal Pain, No Nausea and No Vomiting
Vital Signs / Physical Exam
Vital Signs
Vital Signs
Temp Pulse Resp BP Pulse Ox
98.8 F 85 16 120/71 98
07/09/24 15:05 07/09/24 15:20 07/09/24 15:20 07/09/24 15:20 07/09/24 15:20
Physical Exam
Constitutional: No Acute Distress
Head: Normocephalic
Cardiovascular: Regular Rate and S1/S2
Pulmonary: Clear
Gastrointestinal: Soft, Non Tender and Non Distended
Extremities: Negative Edema
Skin: Warm, Dry and Other (L breast swollen, nontender, erythematous )
Neurological: Awake, Alert and Oriented
Objective Data
Lab Data
Lab Results
07/10/24 04:20
07/10/24 04:20
Estimated Creat Clear 112 ml/min 07/10/24 04:20
Lactic Acid 0.9 mmol/L (0.7-2.0) 07/08/24 17:35
Total Bilirubin 0.1 mg/dl (0.2-1.3) L 07/10/24 04:20
AST 14 U/L (14-36) 07/10/24 04:20
ALT 12 U/L (0-35) 07/10/24 04:20
Alkaline Phosphatase 157 U/L (38-126) H 07/10/24 04:20
Most recent labs reviewed.
Micro Results:
07/08/24 22:19 Blood Culture - Preliminary
Blood/Venous No Growth in 24 hours- Final report to follow
07/08/24 21:30 Blood Culture - Preliminary
Blood/Venous No Growth in 24 hours- Final report to follow
07/09/24 14:50 Wound Culture - Pending
Abscess Gram Stain - Preliminary
07/08/24 20:44 Urine Culture - Pending
Urine
Imaging:
07/08/2024 Ultrasound left breast: The left breast demonstrates a large collection of complex fluid between the 11 and 1:00 positions with additional smaller pockets throughout the breast. Fluid collections appear to interconnect. Lymph nodes are
enlarged, with the largest cortex measuring 7.9 mm. Please see full dictation for additional detail.
--- NOTE | 2024-07-10 08:30 | PHA.VAN.FU ---
Vancomycin Assessment / Plan
- Assessment
Renal Function: Stable
WBC's are: Trending Down
In the past 24 hrs, patient has been: Afebrile
Concomitant Antimicrobials: piperacillin/tazobactam
- Dosing Plan
Continue: Vanc 750mg Q8H
- Monitoring Plan
Peak Level: 07/11 03:00
Trough Level: 07/11 07:30
Monitoring Comments: levels to be drawn after 7th total dose
- Follow Up
Pharmacy will continue to follow.
Vancomycin Follow UP
- -
Patient Age: 28
Patient Sex: Female
Vancomycin Day #: 3
Indication: Skin And Soft Tissue
Requesting Provider: Erica Graff / Dr. Dsouza
Pertinent Antimicrobial Allergies:
NKDA
Height / Weight:
Height 5 ft 3 in
Actual Weight 69.2 kg
Pertinent Past Medical History: 2 weeks
- Vital Signs / Lab Results
Temp Pulse Resp BP Pulse Ox
98.8 F 85 16 120/71 98
07/09/24 15:05 07/09/24 15:20 07/09/24 15:20 07/09/24 15:20 07/09/24 15:20
Lab Results - Hematology
07/08/24 07/09/24 07/10/24
14:54 05:27 04:20
WBC 24.2 H 24.7 H 21.9 H
Lab Results - Chemistry
07/08/24 07/09/24 07/10/24
14:54 05:27 04:20
BUN 14 10 7
Creatinine 0.6 0.6 0.7
Estimated Creat Clear > 125 112
Albumin 3.3 L 2.8 L 3.0 L
07/08/24
17:35
Lactic Acid 0.9
Microbiology Results
07/08/24 22:19 Blood Culture - Preliminary
Blood/Venous No Growth in 24 hours- Final report to follow
07/08/24 21:30 Blood Culture - Preliminary
Blood/Venous No Growth in 24 hours- Final report to follow
07/09/24 14:50 Gram Stain - Preliminary
Abscess
--- NOTE | 2024-07-10 09:52 | W.PN.GYN ---
Today's Communication / Plan
-
28yo w/ sepsis 2/2 left breast abscess
- Continue Vanc and Zosyn pending culture/sensitivities
- s/p drainage by IR on 07/09, drain in place
- Continue fever/pain control w/ Tylenol/ibuprofen
Physician Note
-
Progress Note: PP readmit, day #17
S: No complaints. Pain is better this morning s/p IR drainage yesterday afternoon. Drain in place. Tolerating a regular diet, reports decreased appetite.
O:
108/75, HR 87, RR16, Temp 98.6; Tlast 101.5 (07/09 @0415)
General: tearful, no acute distress
Breast: L breast engorged, tender to palpation, erythema and edema of left upper quadrant extending to below nipple, drain in place with small amount of serosanginous fluid, R breast unremarkable
Abd: soft, nontender
Ext: nontender
WBC 21.9, Hgb 12.6, plt 448
Micro: blood cultures no growth x1d, urine culture pending, abscess prelim moderate gram + cocci
A/P: 28yo w/ sepsis 2/2 left breast abscess
- Continue Vanc and Zosyn pending culture/sensitivities
- s/p drainage by IR on 07/09, drain in place
- Continue fever/pain control w/ Tylenol/ibuprofen
- Appreciate breast surgery, ID, and IR participation in patient's care
--- NOTE | 2024-07-10 10:44 | W.PN.UPDATE ---
Update Note
Progress Note Update
Appreciate IR assistance with abscess drainage. Catheter should be flushed each shift. Await culture results and susceptibilities. After discharge, pt should follow with me in office for drain removal once 24 hour drainage total is 20cc or less.
Will have to see if milk fistula forms.
--- NOTE | 2024-07-10 15:04 | CM ---
Admitted for sepsis - left breast abscess/mastitis
Met with pt at bedside
Pt reports she lives with her and in a 2 story home; 0 steps to enter, 15 steps to 2nd fl
Independent at baseline, employed FT, drives. Currently 2 weeks post , breast feeding infant
DME - breast pump
SNF/HH - no past hx
Has ride at discharge
PCP - Pablito Ortega
Pharm - [facility]
CM will follow for discharge needs
[2024-07-10] MEDS: ANCEF 10 IV ×2 (15:58→22:15)
[2024-07-11] VITALS (7 sets, daily range): BP systolic 90–130; BP diastolic 80–90
[2024-07-11] MEDS: MOTRIN 400 MG PO ×3 (01:56→22:32)
[2024-07-11] MEDS: TYLENOL 650 MG PO ×3 (03:41→19:37)
[2024-07-11 04:06] LABS: Vancomycin Peak 14.1 ug/ml (18-26)
[2024-07-11] MEDS: ANCEF 10 IV (05:57)
[2024-07-11] MEDS: FLUSH (NSS) 2 FLUSH IV ×3 (05:57→12:15)
[2024-07-11] MEDS: VANCOCIN 150 IV (07:54)
[2024-07-11 07:59] LABS: % Basophils 0.6 % (0-2); % Eosinophils 2.2 % (0-6); % Immature Granulocytes 1.1 % (0-0.5); % Lymphocytes 6.2 % (20.5-51.1); % Monocytes 5.3 % (1.7-9.3); % Neutrophils 84.6 % (42.2-75.2); Absolute Basophils 0.1 10^3/uL (0-0.2); Absolute Eosinophils 0.5 10^3/uL (0-0.7); Absolute Immature Granulocytes 0.2 10^3/uL (0-0.05); Absolute Lymphocytes 1.4 10^3/uL (1.2-3.4); Absolute Monocytes 1.2 10^3/uL (0.1-0.6); Absolute Neutrophils 18.8 10^3/uL (1.4-6.5); Hematocrit 35.7 % (37.0-47.0); Hemoglobin 12.4 g/dL (12.0-16.0); Mean Corp Hgb Conc. 34.7 g/dL (33.0-37.0); Mean Corpuscular Hgb 31.7 pg (27.0-31.0); Mean Corpuscular Volume 91.3 fL (81.0-99.0); Mean Platelet Volume 8.7 fL (7.4-10.4); Nucleated Red Blood Cells % 0 %; Platelet Count 418 10^3/uL (130-400); Red Blood Cell Count 3.91 10^6/uL (4.20-5.40); Red Cell Dist. Width 11.9 % (11.5-14.5); White Blood Cell Count 22.2 10^3/uL (4.8-10.8)
[2024-07-11 08:16] LABS: ALT (SGPT) 12 U/L (0-35); AST (SGOT) 12 U/L (14-36); Alkaline Phosphatase 148 U/L (38-126); Blood Urea Nitrogen 8 mg/dl (7-17); Calcium 9.1 mg/dl (8.4-10.2); Carbon Dioxide 24 mmol/L (22-30); Chloride 105 mmol/L (98-107); Estimated Creatinine Clearance > 125 ml/min; Glucose 95 mg/dl (70-99); Potassium 4.1 mmol/L (3.5-5.1); Sodium 140 mmol/L (135-145); Total Bilirubin 0.2 mg/dl (0.2-1.3); Total Protein 5.9 g/dl (6.3-8.2); eGFR > 60.00
--- NOTE | 2024-07-11 08:40 | W.PN.ID1 ---
Addendum entered and electronically signed by Heriberto Dsouza DO 07/11/24 11:20:
I saw and evaluated the patient. I reviewed the resident�s note and agree with findings and plan as documented in the resident�s note with the following additions:
Patient overall feeling improved today. Decreased fullness and tenderness of the left breast area. No difficulty with antibiotics thus far.
Minimal output from MANUEL drain.
Cultures finalized, and revealed the presence of MRSA.
Transition to daptomycin 700 mg IV every 24 hours.
Home infusion sheet completed and given to case management. To continue with antibiotics through 07/21/2024.
Will follow-up in the office in 1 week.
Discussed with ObGyn.
Original Note:
Date of Service
Date of Service: July 11, 2024
Today's Communication
Discontinue vancomycin
Initiate daptomycin and continue IV upond discharge
Assessment / Plan
Left breast mastitis with abscess
Leukocytosis
Fever
day #19
Recommendations:
Discontinue Vancomycin
Abscess culture with MRSA
Initiate IV Daptomycin today and continue upon discharge for a completion of 7 days (can continue to breastfeed while on this medication)
Ordered CPK to check baseline before starting medication
Will need to follow up with ID after 1 week.
Bloodwork (CBC, CMP, CK) to be done while on abx course.
Monitor white count and temperature curve
Subjective / Review of Systems
Pt feels over and denies any severe L breast pain or spreading erythema.
Review of Systems: No Fever, No Chills, No Nausea and No Vomiting
Vital Signs / Physical Exam
Vital Signs
Vital Signs
Temp Pulse Resp BP Pulse Ox
98.8 F 85 16 120/71 98
07/09/24 15:05 07/09/24 15:20 07/09/24 15:20 07/09/24 15:20 07/09/24 15:20
Physical Exam
Constitutional: No Acute Distress
Cardiovascular: Regular Rate and S1/S2
Pulmonary: Clear
Gastrointestinal: Soft, Non Tender and Non Distended
Extremities: Negative Edema
Skin: Warm, Dry and Other (mild erythema on L breast, mildly tender)
Neurological: Awake, Alert and Oriented
Objective Data
Lab Data
Lab Results
07/11/24 07:44
07/11/24 07:44
Estimated Creat Clear > 125 ml/min 07/11/24 07:44
Lactic Acid 0.9 mmol/L (0.7-2.0) 07/08/24 17:35
Total Bilirubin 0.2 mg/dl (0.2-1.3) 07/11/24 07:44
AST 12 U/L (14-36) L 07/11/24 07:44
ALT 12 U/L (0-35) 07/11/24 07:44
Alkaline Phosphatase 148 U/L (38-126) H 07/11/24 07:44
Most recent labs reviewed.
Micro Results:
07/09/24 14:50 Wound Culture - Preliminary
Abscess Staphylococcus aureus
Gram Stain - Preliminary
07/08/24 22:19 Blood Culture - Preliminary
Blood/Venous No Growth in 48 hours- Final report to follow
07/08/24 21:30 Blood Culture - Preliminary
Blood/Venous No Growth in 48 hours- Final report to follow
07/08/24 20:44 Urine Culture - Final
Urine NO GROWTH
Imaging:
07/08/2024 Ultrasound left breast: The left breast demonstrates a large collection of complex fluid between the 11 and 1:00 positions with additional smaller pockets throughout the breast. Fluid collections appear to interconnect. Lymph nodes are
enlarged, with the largest cortex measuring 7.9 mm. Please see full dictation for additional detail.
--- NOTE | 2024-07-11 09:36 | PHA.VAN.FU ---
Vancomycin Assessment / Plan
- Assessment
Renal Function: Stable
WBC's are: Stable (Elevated)
In the past 24 hrs, patient has been: Afebrile
Concomitant Antimicrobials: cefazolin
- Assessment - Therapeutic Drug Monitoring
Extrapolated Cmax (mcg/mL): 19.8
Peak level was drawn: Appropriately
Extrapolated Cmin (mcg/mL): 6.8
Trough Drawn: Appropriately
Levels were drawn: At steady state
Calculated AUC (mcg*h/mL): 295
Calculated ke: 0.1539
Calculated half life (H): 4.5
Calculated Vd (L): 49.5
Calculated Vanc CL (ml/min): 126.97
- Dosing Plan
Adjust Regimen to: vancomycin 1000 mg q8h - first dose 1400 today
New Regimen Predicts: AUC (424), Peak (28.5), Trough (9.7)
- Monitoring Plan
No level(s) ordered at this time: consider levels in a day or two
- Follow Up
Pharmacy will continue to follow.
Vancomycin Follow UP
- -
Patient Age: 28
Patient Sex: Female
Vancomycin Day #: 4
Indication: Skin And Soft Tissue
Requesting Provider: Erica Graff / Dr. Dsouza
Pertinent Antimicrobial Allergies:
NKDA
Height / Weight:
Height 5 ft 3 in
Actual Weight 69.2 kg
Pertinent Past Medical History: 2 weeks
- Vital Signs / Lab Results
Temp Pulse Resp BP Pulse Ox
98.8 F 85 16 120/71 98
07/09/24 15:05 07/09/24 15:20 07/09/24 15:20 07/09/24 15:20 07/09/24 15:20
Lab Results - Hematology
07/08/24 07/09/24 07/10/24
14:54 05:27 04:20
WBC 24.2 H 24.7 H 21.9 H
07/11/24
07:44
WBC 22.2 H
Lab Results - Chemistry
07/08/24 07/09/24 07/10/24
14:54 05:27 04:20
BUN 14 10 7
Creatinine 0.6 0.6 0.7
Estimated Creat Clear > 125 112
Albumin 3.3 L 2.8 L 3.0 L
07/11/24
07:44
BUN 8
Creatinine 0.6
Estimated Creat Clear > 125
Albumin 3.0 L
07/08/24
17:35
Lactic Acid 0.9
Microbiology Results
07/09/24 14:50 Wound Culture - Final
Abscess Staph aureus MRSA
Gram Stain - Final
07/08/24 22:19 Blood Culture - Preliminary
Blood/Venous No Growth in 48 hours- Final report to follow
07/08/24 21:30 Blood Culture - Preliminary
Blood/Venous No Growth in 48 hours- Final report to follow
07/08/24 20:44 Urine Culture - Final
Urine NO GROWTH
Therapeutic Drug Monitoring
Vancomycin Peak 14.1 ug/ml (18-26) L 07/11/24 03:11
Vancomycin Trough 7.0 ug/ml (5-20) 07/11/24 07:44
--- NOTE | 2024-07-11 11:14 | CM ---
Addendum entered by Kailey Wright 07/11/24 16:18:
Discussed with [facility], will deliver supplies tonight. Update to nursing.
Addendum entered by Kailey Wright 07/11/24 15:19:
CM spoke with Fany from [facility], patient fully covered under insurance.
Update from nursing: Patient for IR now, updated [facility], will hold off on delivery tonight and deliver tomorrow, nurse will come tomorrow. [facility] Office number: [phone]. Reviewed with nursing and Physician, discussed it is okay if
patient discharges tonight and receives dose tomorrow afternoon. Updated Fany at [facility], if discharges tomorrow will need to before 12:00 p.m.
Original Note:
CM received call from nurse, consult received for home IV antibiotic set up. CM placed call to Fany at [facility], Per Fany, [facility] does accept mother's insurance- [employer] is an [employer] product. Clinicals faxed to [facility] [phone].
Fany will confirm with pharmacy if [facility] is preferred. Per Fany, no VN referral is needed, nursing will be covered by [facility]. CM will await to hear from [facility]. CM will continue to follow for all discharge planning needs, will
update nursing and mother once updated from [facility].
Plan; home with IV antibiotics, awaiting acceptance from [facility].
[2024-07-11 11:46] LABS: Creatine Phosphokinase < 20 U/L (30-135)
[2024-07-11] MEDS: CUBICIN 14 MG IV (12:15)
--- NOTE | 2024-07-11 15:54 | W.PN.UPDATE ---
Update Note
Progress Note Update
Left breast drain upsized to 10 Fr and repositioned, still no return of pus.
US showed a large collection inferior and lateral to the first collection which was not adequately drained. New 8 Fr catheter was placed into this collection at around 2 oclock, with return of 130 cc of pus. Sent for C+S.
Removed first drain, as this was not draining.
There is a collection at 12 oclock, with erythema of the overlying skin. Hopefully this collection is drained eventually by the new drain. If she fails to improve clinically, may need another drain in the 12 oclock collection.
D/W patient.
[2024-07-11] MEDS: TORADOL 15 MG IV (16:13)
--- NOTE | 2024-07-11 16:24 | PTCARENOTE ---
patient c/o chills post new drain placement to left breast. rec'd verbal order for toradol 15mg iv x 1 dose now. patient given ham crackers and 8 oz of juice. no rigors noted.
[2024-07-11] MEDS: SENOKOT-S 1 TABLET PO (22:32)
[2024-07-12] MEDS: MOTRIN 400 MG PO ×2 (05:30→16:07)
[2024-07-12 05:36] LABS: % Basophils 0.6 % (0-2); % Eosinophils 2.5 % (0-6); % Immature Granulocytes 1.4 % (0-0.5); % Lymphocytes 11.5 % (20.5-51.1); % Monocytes 6.3 % (1.7-9.3); % Neutrophils 77.7 % (42.2-75.2); Absolute Basophils 0.1 10^3/uL (0-0.2); Absolute Eosinophils 0.5 10^3/uL (0-0.7); Absolute Immature Granulocytes 0.3 10^3/uL (0-0.05); Absolute Lymphocytes 2.2 10^3/uL (1.2-3.4); Absolute Monocytes 1.2 10^3/uL (0.1-0.6); Hematocrit 35.4 % (37.0-47.0); Mean Corp Hgb Conc. 33.9 g/dL (33.0-37.0); Mean Corpuscular Hgb 30.8 pg (27.0-31.0); Mean Corpuscular Volume 90.8 fL (81.0-99.0); Mean Platelet Volume 8.8 fL (7.4-10.4); Nucleated Red Blood Cells % 0 %; Platelet Count 401 10^3/uL (130-400); Red Cell Dist. Width 11.9 % (11.5-14.5); White Blood Cell Count 19.3 10^3/uL (4.8-10.8)
[2024-07-12 05:54] LABS: ALT (SGPT) 11 U/L (0-35); AST (SGOT) 12 U/L (14-36); Albumin 2.9 g/dl (3.5-5.0); Alkaline Phosphatase 139 U/L (38-126); Blood Urea Nitrogen 8 mg/dl (7-17); Calcium 8.9 mg/dl (8.4-10.2); Carbon Dioxide 23 mmol/L (22-30); Chloride 106 mmol/L (98-107); Estimated Creatinine Clearance > 125 ml/min; Glucose 91 mg/dl (70-99); Potassium 4.3 mmol/L (3.5-5.1); Sodium 142 mmol/L (135-145); Total Bilirubin 0.2 mg/dl (0.2-1.3); Total Protein 5.9 g/dl (6.3-8.2); eGFR > 60.00
--- NOTE | 2024-07-12 09:36 | W.PN.UPDATE ---
Update Note
Progress Note Update
Appreciate IR repositioning and upsizing of drain. Even if another drainage is required this is preferred in order to preserve nursing which is best for pt and baby. If WBC count does not reduce, would re-US and discuss with IR.
[2024-07-12] MEDS: CUBICIN 14 MG IV (12:10)
[2024-07-12] MEDS: NON-FORMULARY ITEM 1200 MG PO ×2 (15:21→21:19)
[2024-07-13] MEDS: TYLENOL 650 MG PO (01:25)
[2024-07-13] MEDS: MOTRIN 400 MG PO ×3 (06:08→20:39)
[2024-07-13 07:53] LABS: % Basophils 0.8 % (0-2); % Immature Granulocytes 0.9 % (0-0.5); % Lymphocytes 9.9 % (20.5-51.1); % Monocytes 4.6 % (1.7-9.3); % Neutrophils 80.8 % (42.2-75.2); Absolute Basophils 0.1 10^3/uL (0-0.2); Absolute Eosinophils 0.5 10^3/uL (0-0.7); Absolute Immature Granulocytes 0.2 10^3/uL (0-0.05); Absolute Lymphocytes 1.7 10^3/uL (1.2-3.4); Absolute Monocytes 0.8 10^3/uL (0.1-0.6); Absolute Neutrophils 14.2 10^3/uL (1.4-6.5); Hematocrit 35.8 % (37.0-47.0); Hemoglobin 12.3 g/dL (12.0-16.0); Mean Corp Hgb Conc. 34.4 g/dL (33.0-37.0); Mean Corpuscular Hgb 30.8 pg (27.0-31.0); Mean Corpuscular Volume 89.7 fL (81.0-99.0); Mean Platelet Volume 8.6 fL (7.4-10.4); Nucleated Red Blood Cells % 0 %; Platelet Count 469 10^3/uL (130-400); Red Blood Cell Count 3.99 10^6/uL (4.20-5.40); Red Cell Dist. Width 11.8 % (11.5-14.5); White Blood Cell Count 17.5 10^3/uL (4.8-10.8)
[2024-07-13] MEDS: NON-FORMULARY ITEM PO (09:35)
--- NOTE | 2024-07-13 09:36 | W.PN.ID1 ---
Date of Service
Date of Service: July 13, 2024
Today's Communication
c/w daptomycin
[facility] is set up
Assessment / Plan
Left breast mastitis with abscess
Leukocytosis
Fever
day #21
Recommendations:
Abscess culture with MRSA
Repeat breast US done this AM - for second drain placement today
Drain in place and recently upsized 07/11
Appreciate Breast Surgery input
C/w IV Daptomycin today and continue upon discharge for a completion of 7 days (can continue to breastfeed while on this medication)
Baseline CK <20
Will need to follow up with Dr Dsouza after 1 week.
Blood work (CBC, CMP, CK) to be done periodically while on abx course.
has received antibiotics at home
Midline in place
Monitor white count and temperature curve
Chief Complaint
-: Other (breast abscess)
Subjective / Review of Systems
afebrile
bp stable
breast US done - persistent L breast abscess at 12oclock; also visible on PE
in healthcare
Vital Signs / Physical Exam
Vital Signs
Vital Signs
Temp Pulse Resp BP Pulse Ox
99.3 F 79 22 130/87 98
07/11/24 16:15 07/11/24 16:25 07/11/24 16:25 07/11/24 16:25 07/11/24 16:25
Physical Exam
Constitutional: No Acute Distress
Cardiovascular: Regular Rate and S1/S2; Negative Murmur or Rub
Pulmonary: Clear and Symmetric; Negative Wheezes or Rales
Gastrointestinal: Soft, Non Tender, Non Distended and Normal Bowel Sounds
Skin: Warm, Dry and Other (above the nipple red, swollen, erythematous, mildly fluctuanct lesion; drain in the lateral collection); Negative Rash or Jaundice
Objective Data
Lab Data
Lab Results
07/13/24 07:44
07/12/24 05:16
Estimated Creat Clear > 125 ml/min 07/12/24 05:16
Lactic Acid 0.9 mmol/L (0.7-2.0) 07/08/24 17:35
Total Bilirubin 0.2 mg/dl (0.2-1.3) 07/12/24 05:16
AST 12 U/L (14-36) L 07/12/24 05:16
ALT 11 U/L (0-35) 07/12/24 05:16
Alkaline Phosphatase 139 U/L (38-126) H 07/12/24 05:16
Most recent labs reviewed.
Micro Results:
07/08/24 22:19 Blood Culture - Preliminary
Blood/Venous No Growth in 4 days- Final report to follow
07/08/24 21:30 Blood Culture - Preliminary
Blood/Venous No Growth in 4 days- Final report to follow
07/11/24 15:47 Wound Culture - Preliminary
Breast - Left Staph aureus MRSA
Gram Stain - Preliminary
07/09/24 14:50 Wound Culture - Final
Abscess Staph aureus MRSA
Gram Stain - Final
07/08/24 20:44 Urine Culture - Final
Urine NO GROWTH
Imaging:
07/08/2024 Ultrasound left breast: The left breast demonstrates a large collection of complex fluid between the 11 and 1:00 positions with additional smaller pockets throughout the breast. Fluid collections appear to interconnect. Lymph nodes are
enlarged, with the largest cortex measuring 7.9 mm. Please see full dictation for additional detail.
Care Review
Plan reviewed with: Physician (Dr Garrison - drain)
--- NOTE | 2024-07-13 10:45 | CM ---
Chart reviewed
For IR today for drain placement
Remains on IV antibiotic - ID following
CM remains available for discharge needs
Plan - home with [facility] when medically ready
[2024-07-13] MEDS: CUBICIN 14 MG IV (11:30)
--- NOTE | 2024-07-13 12:52 | W.PN.UPDATE ---
Update Note
Progress Note Update
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 She has had 2 IR procedures to drain loculated collections and apparently there is one more. I met her in the IR suite prior to the
performance of an additional aspiration and drainage today. She is feeling well and anxious to go home. She did have some transient chills after the last drainage, but says she knows what to expect. If this procedure yields drainage, then from a
surgical standpoint we would continue to manage this conservatively. Antibiotic coverage and duration per ID. Some mothers need to be on antibiotic suppression for the duration of nursing, but will follow clinically. I would like to see her this
week in the office for close monitoring. Contact information provided.
[2024-07-13 13:00] VITALS: BP 112/78; BP_SYST 78
--- NOTE | 2024-07-13 13:31 | PTCARENOTE ---
Patient was transported to ultrasound department by W/Ch. U/S of the left breast done by tech. pt tolerating U/S well, pt transported back to room.
--- NOTE | 2024-07-13 13:37 | W.PN.UPDATE ---
Update Note
Progress Note Update
US this morning showed undrained collection within superior left breast at 12 oclock.
US guided drainage catheter placed into collection, yielding 90 cc of purulent fluid.
US and physical exam show no other undrained collections, she most likely will not require any further drainage. D/W patient.
--- NOTE | 2024-07-13 13:43 | PTCARENOTE ---
Addendum entered by Maggie Orozco LPN 07/13/24 14:52:
Late Entry note. Pt was seen this morning at 9:00 am for support.
Addendum entered by Maggie Orozco LPN 07/13/24 14:08:
Pt Taking Lecithin 1200mg TID.
Original Note:
Mady-Mary is currently pumping from both breast Q-3hrs, with the left side producing about 1-1.5 oz per session and the right side producing around 3 oz. Assisted pt with cleaning and sterilizing pump part. a left U/S was done today.Pt was
prescribe Lecithin 12 mg TID by .
[2024-07-13 13:50] VITALS: BP 109/87; BP_SYST 73
[2024-07-13 13:57] VITALS: BP 114/74; BP_SYST 81
[2024-07-13 14:00] VITALS: BP 108/79; BP_SYST 66
[2024-07-13] MEDS: NON-FORMULARY ITEM 1200 MG PO ×2 (16:30→20:32)
[2024-07-13] MEDS: SENOKOT-S 1 TABLET PO (20:32)
[2024-07-14] MEDS: MOTRIN 400 MG PO ×2 (04:14→11:02)
[2024-07-14 05:45] LABS: % Basophils 0.9 % (0-2); % Eosinophils 3.7 % (0-6); % Monocytes 4.7 % (1.7-9.3); % Neutrophils 75.7 % (42.2-75.2); Absolute Basophils 0.1 10^3/uL (0-0.2); Absolute Eosinophils 0.5 10^3/uL (0-0.7); Absolute Immature Granulocytes 0.1 10^3/uL (0-0.05); Absolute Monocytes 0.7 10^3/uL (0.1-0.6); Absolute Neutrophils 11.1 10^3/uL (1.4-6.5); Hematocrit 37.4 % (37.0-47.0); Hemoglobin 12.7 g/dL (12.0-16.0); Mean Corpuscular Hgb 31.2 pg (27.0-31.0); Mean Corpuscular Volume 91.9 fL (81.0-99.0); Mean Platelet Volume 8.8 fL (7.4-10.4); Nucleated Red Blood Cells % 0 %; Platelet Count 496 10^3/uL (130-400); Red Blood Cell Count 4.07 10^6/uL (4.20-5.40); Red Cell Dist. Width 11.7 % (11.5-14.5); White Blood Cell Count 14.6 10^3/uL (4.8-10.8)
[2024-07-14 06:07] LABS: Creatine Phosphokinase < 20 U/L (30-135)
--- NOTE | 2024-07-14 09:50 | CM ---
Pt for discharge today per pts nurse Nessa
Spoke with Fany from [facility]
Will do pts med teaching today at bedside - medication has been delivered to pts home
Notified nursing staff on LDRP of plan with [facility]
Plan - home with [facility]
--- NOTE | 2024-07-14 09:52 | W.PN.OBG.DWH ---
Today's Communication / Plan
-
dc home
Assessment/Plan
-
L breast abscess
drains in place
cont daptomycin for 7 d, infusion nurse arranged to come to home. abx at home
flush drains, vn scheduled to come
pt to f/up with Dr. Ford and Dr randolph this week
has pp visit in 4 wks
Subjective Data
-
no complaints, less vaginal bleeding, reduction milk supply and may need to supplement with formula
Objective Data
-
Laboratory Results
07/14/24 05:29
07/12/24 05:16
Vital Signs
Temp Pulse Resp BP Pulse Ox
98.2 F 66 16 108/79 98
07/13/24 13:00 07/13/24 14:00 07/13/24 14:00 07/13/24 14:00 07/13/24 14:[address], induration L medial superior aspect, nt
lungs cl
cor rrr
abd +bs soft, nt
ext nt
--- NOTE | 2024-07-14 10:44 | W.PN.ID1 ---
Date of Service
Date of Service: July 14, 2024
Today's Communication
Continue antibiotics. Check ultrasound prior to D/C to assure no ongoing collections.
Assessment / Plan
Left breast mastitis with multiple loculated abscesses
Leukocytosis
Fever
day #21
Recommendations:
Cultures with MRSA.
Patient required additional drain placement on Sunday. Decreased drain output today as per nurse.
Overall, patient feels improved.
Would check ultrasound prior to D/C today to assure no ongoing collections which may need drainage. Even if additional drainage needs to occur, no objection to discharge today.
Continue with daptomycin. May require longer than 7-day course at home.
Midline in place
Monitor white count and temperature curve
Chief Complaint
-: Other (breast abscess 2* MRSA)
Subjective / Review of Systems
Patient seen and examined. Overall, reports feeling improved. Less left breast discomfort. No fevers.
Vital Signs / Physical Exam
Vital Signs
Vital Signs
Temp Pulse Resp BP Pulse Ox
98.2 F 66 16 108/79 98
07/13/24 13:00 07/13/24 14:00 07/13/24 14:00 07/13/24 14:00 07/13/24 14:00
Physical Exam
Constitutional: No Acute Distress and Comfortable
Eyes: No Conjunctival Hemorrhage and Sclera Anicteric
Cardiovascular: Regular Rate
Pulmonary: Clear; Negative Wheezes
Gastrointestinal: Soft and Non Distended
Skin: Warm, Dry and Other (Left breast with mild erythema above the areola; drain x2 in lateral breast area. Purulence noted in drain.); Negative Rash or Jaundice
Neurological: Awake and Alert
Psychological: Calm
Objective Data
Lab Data
Lab Results
07/14/24 05:29
07/12/24 05:16
Estimated Creat Clear > 125 ml/min 07/12/24 05:16
Lactic Acid 0.9 mmol/L (0.7-2.0) 07/08/24 17:35
Total Bilirubin 0.2 mg/dl (0.2-1.3) 07/12/24 05:16
AST 12 U/L (14-36) L 07/12/24 05:16
ALT 11 U/L (0-35) 07/12/24 05:16
Alkaline Phosphatase 139 U/L (38-126) H 07/12/24 05:16
Most recent labs reviewed.
Micro Results:
07/13/24 13:28 Wound Culture - Preliminary
Abscess Staph aureus MRSA
Gram Stain - Preliminary
07/08/24 22:19 Blood Culture - Final
Blood/Venous No Growth - Final Report
07/08/24 21:30 Blood Culture - Final
Blood/Venous No Growth - Final Report
07/11/24 15:47 Wound Culture - Final
Breast - Left Staph aureus MRSA
Gram Stain - Final
07/09/24 14:50 Wound Culture - Final
Abscess Staph aureus MRSA
Gram Stain - Final
07/08/24 20:44 Urine Culture - Final
Urine NO GROWTH
Imaging:
07/08/2024 Ultrasound left breast: The left breast demonstrates a large collection of complex fluid between the 11 and 1:00 positions with additional smaller pockets throughout the breast. Fluid collections appear to interconnect. Lymph nodes are
enlarged, with the largest cortex measuring 7.9 mm. Please see full dictation for additional detail.
Care Review
Plan reviewed with: Physician (PUBLIC HEALTH CLINICAL NURSE SPECIALIST)
[2024-07-14] MEDS: SENOKOT-S 1 TABLET PO (11:02)
[2024-07-14] MEDS: CUBICIN 14 MG IV (11:03)
[2024-07-14] MEDS: NON-FORMULARY ITEM 1200 MG PO (11:06)
[2024-07-14 14:30] VITALS: BP 106/72; BP_SYST 96
[2024-07-14 16:20] VITALS: BP_SYST 74
--- NOTE | 2024-07-14 16:25 | W.PN.IRAD.PR ---
Procedure Note
-
US performed in IR pre-procedure. 1200 drain showed small volume residual fluid adjacent locking loop, predominantly phlegmonous appearance. At2-3:00, significant collection as seen earlier today, indwelling drain in superficial position outside
collection.
12:00 catheter flushed and aspirated with return 10cc purulent appearing fluid, will leave in place at this time.
Original lateral drain removed and new lateral drain placed under US guidance, 30cc purulent fluid evacuated. No other undrained collection identified.
[2024-07-14 16:35] VITALS: BP 106/72
--- NOTE | 2024-07-14 16:59 | W.PN.UPDATE ---
Update Note
Progress Note Update
Appreciate Dr. Dsouza's advice and managing the drains. Can consider repeat US tomorrow prior to discharge. Hopefully, WBCs will be normal in am.
--- NOTE | 2024-07-14 17:03 | W.PN.OBG.DWH ---
Today's Communication / Plan
-
dc home
pt to schedule appt with Dr. Jarvis for end of week
has appt with Dr. Dsouza 07/22
Assessment/Plan
-
s/p new drain placement
d/w Dr. Dsouza and Dr. Jarvis
continue with abx
maintain 2 drains
Subjective Data
-
desires discharge
had Breast us earlier and new collection at 3, measuring 4. 9 cm
seen by IR and had aspiration of new lesion and placement of new drain. older drain removed. now has 2 drains
Objective Data
-
Laboratory Results
07/14/24 05:29
07/12/24 05:16
Vital Signs
Temp Pulse Resp BP Pulse Ox
98.1 F 74 16 106/72 97
07/14/24 14:30 07/14/24 16:35 07/14/24 16:35 07/14/24 16:35 07/14/24 14:[address]
[2024-07-14] MEDS: NON-FORMULARY ITEM PO (17:18)
== END 2024-07-14 18:03 | disposition home or self-care (01) | DRG 776 ==
LOC: LDRP 18:33
PROVIDERS: Clinical Nurse Specialist Family Health; Obstetrics & Gynecology; Radiology Diagnostic Radiology; Radiology Vascular & Interventional Radiology; Registered Nurse; Student in an Organized Health Care Education/Training Program; ADMITTING PHYSICIAN Obstetrics & Gynecology; CONSULT PHYSICIAN Surgery; EMERGENCY PHYSICIAN Student in an Organized Health Care Education/Training Program; FAMILY PHYSICIAN Internal Medicine; OTHER PHYSICIAN Internal Medicine Infectious Disease
PROC: 0H9U30Z Drainage of Left Breast with Drainage Device, Percutaneous Approach (ICD-10-PCS; 2024-07-09)
DX: O98.83 Other maternal infectious and parasitic diseases complicating the puerperium (principal); A41.9 Sepsis, unspecified organism; D68.51 Activated protein C resistance; O99.13 Other diseases of the blood and blood-forming organs and certain disorders involving the immune mechanism complicating the puerperium; O91.12 Abscess of breast associated with the puerperium; B95.62 Methicillin resistant Staphylococcus aureus infection as the cause of diseases classified elsewhere
CPT/HCPCS: 10030; 76642; 80053; 80202; 81003; 81015; 82550; 83605; 85025; 87040; 87070; 87086; 87147; 87186; 87205; 96365; 96375; 99152; 99153; 99285; C1729; C1769; J0878

== ENCOUNTER 2024-08-05 11:46 | Emergency (ER) | payer OTHER, BC, SELFPAY ==
[2024-08-05 11:55] VITALS: BP 107/71
--- NOTE | 2024-08-05 12:03 | ED.GENMED ---
ED Provider Triage
<Dory Lowry PA-C - Last Filed: 08/05/24 16:34>
-
Patient seen by provider in Triage?: Seen in Triage
Attestation: A medical screening examination has been initiated by a qualified medical provider. Based on the assessment performed at this time, it has been determined that an emergent medical condition may exist and the patient has been informed
that further medical evaluation and possible additional diagnostic testing may be needed.
HPI: 28yoF here with fever and lump of L breast. Recently admitted for breast abscess requiring drains and IV daptomycin which she finished last week. Started with f/c yesterday. Sent in by OBGYN. Currently 6 weeks .
GENERAL: Alert , in no apparent distress
EYE: No visual abnormalities.
NECK: Trachea midline
ENT: No visible abnormalities.
LUNGS: No acute respiratory distress
NEUROLOGICAL: Alert and oriented
SKIN: Skin intact. No visible changes.
MUSCULOSKELETAL: Moving extremities normally
PSYCH: Normal and appropriate interaction.
This is a medical evaluation conducted in person to initiate diagnostic evaluation and provide initial therapeutics. Please see further documentation by the treating clinician.
CBC, CMP, lactate, and breast US ordered.
History of Present Illness
<Dory Lowry PA-C - Last Filed: 08/05/24 16:34>
General
Chief Complaint: Skin Problem
Time Seen by Provider: 08/05/24 12:29
<Trista Walsh PA-C - Last Filed: 08/05/24 17:56>
General
Source: patient
Exam Limitations: none
Nursing documentation reviewed up to this point in time: agreed with
History of Present Illness
History of Present Illness:
28-year-old female presents emergency department today with left breast tenderness and pain for the past few days. Patient is 6 weeks post-. She denies any drainage from her nipple. Of note, patient had a fever of 101.4 F at home yesterday,
has taken motrin. She denies nausea, vomiting, abdominal pain. Patient is not currently taking antibiotics. She was sent to the emergency department by Jody ROBBINS for imaging. Patient was recently discharged from the hospital for breast
abscess, she had to have drains placed. She received zosyn initially and got daptomycin as an outpatient. Denies other infectious symptoms denies abdominal pain,pelvic pain, burning with urination, chest pain, shortness of breath.
Past History
<Dory Lowry PA-C - Last Filed: 08/05/24 16:34>
Past History
ED Past Medical History: Other (Factor V Leiden)
Social History
Tobacco: Non-smoker
Personal:
Living: with family
Review of Systems
<Trista Walsh PA-C - Last Filed: 08/05/24 17:56>
Review of Systems
All Other Systems: ROS reviewed and negative except as documented in HPI and ROS
Phy Exam
<Trista Walsh PA-C - Last Filed: 08/05/24 17:56>
Physical Exam
Physical Exam:
General: Patient is well appearing and in no acute distress; non-toxic
Skin and breast: Warm and dry, erythematous fluctuant mass noted to lower inner quadrant of left breast, no nipple discharge, prior surgical scars noted on upper breast from drain placement.
Head: Normocephalic, atraumatic
Eyes: Sclera non-icteric. EOMs intact.
Cardiac: Regular rate and rhythm, no murmurs
Peripheral Vascular: No lower extremity swelling or edema
Pulm: Normal respiratory effort,no wheezes, rales, or rhonchi
Abdomen: No abdominal tenderness to palpation
Neuro: CN II-XII intact, no focal neurologic deficits.
Psychiatric: Appropriate mood and affect.
Course
<Dory Lowry PA-C - Last Filed: 08/05/24 16:34>
Orders/Labs/Results
Orders:
Orders
08/05/24 12:08
Complete Blood Count/With Diff Urgent
Comprehensive Metabolic Panel Urgent
08/05/24 12:09
Lactate Level [Lactic Acid] Urgent
08/05/24 12:45
Ibuprofen [Motrin] 400 mg PO NOW STA
08/05/24 13:51
US Breast Left Ltd [facility] Urgent
08/05/24 17:00
Dalbavancin HCl [Dalvance] 1,000 mg Dextrose 5%/Water 250 ml [D5w] 200 ml IV ONCE
Abnormal Lab Results
08/05/24
12:08
Absolute Lymphs (auto) 1.1 L 10^3/uL
(1.2-3.4)
Absolute Monos (auto) 0.8 H 10^3/uL
(0.1-0.6)
Lymphocytes % 14.5 L %
(20.5-51.1)
Monocytes % 10.2 H %
(1.7-9.3)
08/05/24 12:08
08/05/24 12:08
Vital Signs
Initial and Last Documented VS:
Initial Vital Signs
Temp Pulse Resp BP Pulse Ox
98.1 F 107 16 107/71 98
08/05/24 11:55 08/05/24 11:55 08/05/24 11:55 08/05/24 11:55 08/05/24 11:55
Last Documented Vital Signs
Temp Pulse Resp BP Pulse Ox
98.1 F 84 17 94/63 100
08/05/24 11:55 08/05/24 17:44 08/05/24 17:44 08/05/24 17:44 08/05/24 17:44
Amylt;Trista Walsh PA-C - Last Filed: 08/05/24 17:56>
Orders/Labs/Results
Orders:
Orders
08/05/24 12:08
Complete Blood Count/With Diff Urgent
Comprehensive Metabolic Panel Urgent
08/05/24 12:09
Lactate Level [Lactic Acid] Urgent
08/05/24 12:45
Ibuprofen [Motrin] 400 mg PO NOW STA
08/05/24 13:51
US Breast Left Ltd [facility] Urgent
08/05/24 17:00
Dalbavancin HCl [Dalvance] 1,000 mg Dextrose 5%/Water 250 ml [D5w] 200 ml IV ONCE
Abnormal Lab Results
08/05/24
12:08
Absolute Lymphs (auto) 1.1 L 10^3/uL
(1.2-3.4)
Absolute Monos (auto) 0.8 H 10^3/uL
(0.1-0.6)
Lymphocytes % 14.5 L %
(20.5-51.1)
Monocytes % 10.2 H %
(1.7-9.3)
08/05/24 12:08
08/05/24 12:08
Vital Signs
Initial and Last Documented VS:
Initial Vital Signs
Temp Pulse Resp BP Pulse Ox
98.1 F 107 16 107/71 98
08/05/24 11:55 08/05/24 11:55 08/05/24 11:55 08/05/24 11:55 08/05/24 11:55
Last Documented Vital Signs
Temp Pulse Resp BP Pulse Ox
98.1 F 84 17 94/63 100
08/05/24 11:55 08/05/24 17:44 08/05/24 17:44 08/05/24 17:44 08/05/24 17:44
<Nathan Bettencourt MD - Last Filed: 08/05/24 16:33>
Orders/Labs/Results
Orders:
Orders
08/05/24 12:08
Complete Blood Count/With Diff Urgent
Comprehensive Metabolic Panel Urgent
08/05/24 12:09
Lactate Level [Lactic Acid] Urgent
08/05/24 12:45
Ibuprofen [Motrin] 400 mg PO NOW STA
08/05/24 13:51
US Breast Left Ltd [facility] Urgent
08/05/24 17:00
Dalbavancin HCl [Dalvance] 1,000 mg Dextrose 5%/Water 250 ml [D5w] 200 ml IV ONCE
Abnormal Lab Results
08/05/24
12:08
Absolute Lymphs (auto) 1.1 L 10^3/uL
(1.2-3.4)
Absolute Monos (auto) 0.8 H 10^3/uL
(0.1-0.6)
Lymphocytes % 14.5 L %
(20.5-51.1)
Monocytes % 10.2 H %
(1.7-9.3)
08/05/24 12:08
08/05/24 12:08
Vital Signs
Initial and Last Documented VS:
Initial Vital Signs
Temp Pulse Resp BP Pulse Ox
98.1 F 107 16 107/71 98
08/05/24 11:55 08/05/24 11:55 08/05/24 11:55 08/05/24 11:55 08/05/24 11:55
Last Documented Vital Signs
Temp Pulse Resp BP Pulse Ox
98.1 F 84 17 94/63 100
08/05/24 11:55 08/05/24 17:44 08/05/24 17:44 08/05/24 17:44 08/05/24 17:44
Amylt;Trista Walsh PA-C - Last Filed: 08/05/24 17:56>
MDM/Problems Addressed
Differential Diagnosis Includes:
ddx include mastitis, breast abscess, ductal ectasia, bacteremia
MDM/Problems Addressed:
28-year-old female presents emergency department today with left breast tenderness and pain for the past few days. In light of her history of MRSA breast abscess and current breast feeding status, Dr. Jarvis and Dr. Dsouza were consulted.
Lianna recommends dose of dalbavancin now and setting patient up to have weeky infusions done as an outpatient. Patient recieved dose of this in the ER, will follow up with infusion center. Patient stable for discharge.
<Trista Walsh PA-C - Last Filed: 08/05/24 17:56>
*Pulse Oximetry
Patient hypoxic: no
*Critical Care Note
Total Time (30-74mins, 75-104mins- exclusive of procedures): Not Applicable
Data Reviewed
Review of Other/Old Records Reveals: Discharge Summary (reviewed most recent discharge summary )
ED Attending Note
<Dory Lowry PA-C - Last Filed: 08/05/24 16:34>
-
Portions of this chart may have been created with voice recognition software.� Occasional wrong word or��sound alike� substitutions may have occurred due to the inherent limitations of voice recognition software.
<Nathan Bettencourt MD - Last Filed: 08/05/24 16:33>
ED Attending Note
Patient seen and examined by attending physician: Yes
ED Attending Note:
I have seen and evaluated the patient with a [id number] encounter. I have spoken to the advance practicer provider and involved in the medical history, the physical exam, medical decision making.
Evaluation and management service: agree unless noted differently below.
Results interpretation: agree unless noted differently below.
Focused HPI: 28-year-old female who is 6 weeks currently breast-feeding who had a recent complicated course for severe left mastitis requiring drain placement and IV antibiotics for 3 weeks. She finished IV antibiotic course last week
and had midline removed. Over the past few days has noticed increased redness and swelling and last night had a fever. Sent to the ER by her TECHNICAL SERVICES COORDINATOR.
Physical exam: Awake alert not in distress. Tachycardic but afebrile.
Medical Decision Makin-year-old female presents with recurrent mastitis. Ultrasound shows no drainable abscess. Labs unremarkable. She does not appear septic. Case was discussed with TECHNICAL SERVICES COORDINATOR and infectious disease�patient seen at bedside by
infectious disease. Will plan to set up for antibiotic infusion as outpatient. Give additional dose here. Patient comfortable with this plan. All questions answered.
Discharge Plan
Departure
Patient Disposition: Home (Routine Discharge)
Date of Disposition: 08/05/24
Time of Disposition: 16:25
Patient with high blood pressure during this ER visit?: No
Condition: Good
Discharge Problem:
Acute mastitis of left breast
Instructions: Mastitis, BLOOD PRESSURE
Prescriptions:
No Action
acetaminophen 500 mg Tablet
500 mg PO Q6HPRN PRN (Reason: mild pain)
28-800 mg-mcg Tablet
1 tab PO HS
sennosides-docusate sodium 8.6-50 mg tablet
1 tab PO HS
ferrous sulfate [FeroSul] 325 mg (65 mg iron) tablet
325 mg PO HS
ibuprofen 200 mg tablet
400 - 600 mg PO Q6HPRN PRN (Reason: moderate pain/cramps)
DAPTOmycin [Cubicin] 700 MG
Syringe [Syringe-Pump] 0 ML
As Directed mls/hr IV Q24H
Ordered By: Shea Christy MD
Last Taken: Unknown
Referrals:
Heriberto Dsouza DO [Active] - Call in 1-3 days for appt
Pablito Ortega DO [Family Provider] -
Activity Restrictions/Additional Instructions:
Infusion center phone number: [phone] Dsouza's office and the infusion center to confirm your appointments and continued weekly infusion of Dalvance.
Please return to the emergency department should you experience chest pain, shortness of breath, lightheadedness, dizziness, intractable nausea and vomiting, rapid spread of redness and pain, or any other signs or symptoms worrisome to you.
Interventions
Interventions:
*Risk Screen - Suicide Last Done: 08/05/24 11:55
*Neglect/Abuse Screening Last Done: 08/05/24 11:55
ED- Fall Risk Assessment Last Done: 08/05/24 15:01
*Nursing Disposition Last Done: 08/05/24 17:48
ED-Skin Assessment Last Done: 08/05/24 15:04
Discharge Date and Time
Print Language: KOREAN
[2024-08-05 12:22] LABS: % Basophils 0.5 % (0-2); % Eosinophils 2.1 % (0-6); % Immature Granulocytes 0.3 % (0-0.5); % Lymphocytes 14.5 % (20.5-51.1); % Monocytes 10.2 % (1.7-9.3); % Neutrophils 72.4 % (42.2-75.2); Absolute Eosinophils 0.2 10^3/uL (0-0.7); Absolute Lymphocytes 1.1 10^3/uL (1.2-3.4); Absolute Monocytes 0.8 10^3/uL (0.1-0.6); Absolute Neutrophils 5.6 10^3/uL (1.4-6.5); Hematocrit 40.7 % (37.0-47.0); Hemoglobin 14.1 g/dL (12.0-16.0); Mean Corp Hgb Conc. 34.6 g/dL (33.0-37.0); Mean Corpuscular Volume 89.5 fL (81.0-99.0); Mean Platelet Volume 9.1 fL (7.4-10.4); Nucleated Red Blood Cells % 0 %; Platelet Count 245 10^3/uL (130-400); Red Blood Cell Count 4.55 10^6/uL (4.20-5.40); White Blood Cell Count 7.7 10^3/uL (4.8-10.8)
[2024-08-05 12:37] LABS: Lactic Acid 1.1 mmol/L (0.7-2.0)
[2024-08-05 12:38] LABS: ALT (SGPT) 17 U/L (0-35); AST (SGOT) 20 U/L (14-36); Albumin 4.4 g/dl (3.5-5.0); Alkaline Phosphatase 121 U/L (38-126); Blood Urea Nitrogen 13 mg/dl (7-17); Calcium 9.3 mg/dl (8.4-10.2); Carbon Dioxide 23 mmol/L (22-30); Chloride 105 mmol/L (98-107); Glucose 97 mg/dl (70-99); Potassium 4.5 mmol/L (3.5-5.1); Sodium 138 mmol/L (135-145); Total Bilirubin 0.4 mg/dl (0.2-1.3); Total Protein 7.6 g/dl (6.3-8.2); eGFR > 60.00
[2024-08-05] MEDS: MOTRIN 400 MG PO (12:54)
--- NOTE | 2024-08-05 15:28 | CON.ID ---
Consultation
-
Date/Time Consultation Requested: 08/05/2024 1515
Date/Time Consultation Performed: 08/05/2024 1520
Requesting Provider: Trista Walsh PA-C
Performing Provider: Dr. Dsouza
Reason for Consultation: Left breast infection
Chief Complaint / Past History
History of Present Illness
Renee Zimmer is a 28-year-old female being evaluated at the request of Trista Walsh PA-C regarding a left breast infection. History is obtained from chart review, along with patient interview.
Patient is known to the Infectious Diseases service, having been seen recently for left breast MRSA mastitis. She was discharged home on 07/16/2024 on a course of daptomycin which she finished last week. She notes that over the intervening week
she did well, but yesterday developed some increasing redness and tenderness in the 7 o'clock position of the left breast. She also developed fevers and chills at home. She reached out to her BEE WORKER and was sent to the emergency room for further
evaluation. Here she underwent ultrasound imaging, with the findings consistent with edema and fluid interspersed within the soft tissues. No discrete fluid collection was seen. Infectious Diseases is asked to comment upon further antimicrobial
therapy
At this time she continues to breast-feed. She notes tenderness in that 7 o'clock position. She notes no other areas of tenderness. Prior drain sites have healed.
Past History
Past Medical History: Other (Factor V Leiden deficiency)
Past Surgical History: None
Allergy History:
No Known Allergies Allergy (Verified 08/05/24 11:58)
Medications Reviewed: Yes
Current Antibiotics:
None
Social History
Tobacco: Non-Smoker
Alcohol: None
Drug: None
Personal:
Living: With Family
Employment: Employed
Family History
Family History: Not Pertinent
Review of Systems
Vital Signs
Temp Pulse Resp BP Pulse Ox
98.1 F 107 16 107/71 98
08/05/24 11:55 08/05/24 11:55 08/05/24 11:55 08/05/24 11:55 08/05/24 11:55
Physical Exam
Physical Exam
Constitutional: No Acute Distress, Comfortable and Non-toxic
Eyes: Sclera Anicteric
Pulmonary: Non Labored
Gastrointestinal: Non Distended
Skin: Other (Left breast area examined. There is an erythematous area with tenderness in the 7 o'clock position. No discrete area of fluctuance. Prior areas of erythema have resolved.)
Neurological: Awake and Alert
Psychological: Calm
Lab / Diagnostic Study Results
08/05/24 12:08
08/05/24 12:08
Abs Immat Gran (auto) 0.0 10^3/uL (0-0.05) 08/05/24 12:08
Absolute Neuts (auto) 5.6 10^3/uL (1.4-6.5) 08/05/24 12:08
Absolute Lymphs (auto) 1.1 10^3/uL (1.2-3.4) L 08/05/24 12:08
Absolute Monos (auto) 0.8 10^3/uL (0.1-0.6) H 08/05/24 12:08
Absolute Basos (auto) 0.0 10^3/uL (0-0.2) 08/05/24 12:08
Immature Gran % 0.3 % (0-0.5) 08/05/24 12:08
Neutrophils % 72.4 % (42.2-75.2) 08/05/24 12:08
Lymphocytes % 14.5 % (20.5-51.1) L 08/05/24 12:08
Monocytes % 10.2 % (1.7-9.3) H 08/05/24 12:08
Eosinophils % 2.1 % (0-6) 08/05/24 12:08
Basophils % 0.5 % (0-2) 08/05/24 12:08
Lactic Acid 1.1 mmol/L (0.7-2.0) 08/05/24 12:09
Microbiology Results
Imaging:
08/05/2024 Left breast ultrasound: Ultrasound imaging was performed over the areas of redness, 6-9 o'clock left breast. There is fluid interspersed within the soft tissues. There is no fluid collection. Findings are consistent with edema. Fluid is
currently interspersed within the soft tissues and there is no drainable collection.
Assessment / Plan
Left breast area tenderness and erythema
Suspected recurrence of MRSA
Recommendations:
Will arrange for dose of dalbavancin now, with additional dose next week in the outpatient infusion department.
Counseled patient to follow-up for resolution or worsening of area of erythema..
Will follow-up in the office next week.
Care Review
Plan reviewed with: Physician (BEE WORKER; Breast surgery; ER Provider)
[2024-08-05] MEDS: DALVANCE 250 MG IV (16:27)
[2024-08-05 17:44] VITALS: BP 94/63
== END 2024-08-05 17:50 | disposition home or self-care (01) ==
LOC: EMR 11:46
PROVIDERS: Emergency Medicine; Physician Assistant; EMERGENCY PHYSICIAN Emergency Medicine; FAMILY PHYSICIAN Internal Medicine; OTHER PHYSICIAN Internal Medicine Infectious Disease
DX: O91.22 Nonpurulent mastitis associated with the puerperium (principal); O99.13 Other diseases of the blood and blood-forming organs and certain disorders involving the immune mechanism complicating the puerperium; D68.51 Activated protein C resistance; Z86.14 Personal history of Methicillin resistant Staphylococcus aureus infection
CPT/HCPCS: 99284; 96374; 76642; 80053; 83605; 85025; J0875

== ENCOUNTER 2024-08-13 11:38 | Outpatient (RCR) | payer OTHER, BC, SELFPAY ==
[2024-08-13] MEDS: DALVANCE 125 MG IV (12:05)
[2024-08-13 12:12] VITALS: BP 104/49
== END 2024-08-14 10:44 | disposition home or self-care (01) ==
LOC: OID 11:38
PROVIDERS: ATTENDING PHYSICIAN Internal Medicine Infectious Disease; FAMILY PHYSICIAN Internal Medicine
DX: N61.1 Abscess of the breast and nipple (principal); O91.22 Nonpurulent mastitis associated with the puerperium; B95.62 Methicillin resistant Staphylococcus aureus infection as the cause of diseases classified elsewhere; Z86.14 Personal history of Methicillin resistant Staphylococcus aureus infection
CPT/HCPCS: 96365; J0875